=== PATIENT | female | born 1960 | race Caucasian/White ===

== ENCOUNTER 2021-05-01 09:29 | Inpatient (IN) ==
--- NOTE | 2021-05-01 09:39 | DR.SOBA ---
HPI Time Seen Time Seen by Provider: 05/01/21 09:38 HPI Comment HPI Comment: PATIENT IS 60YR OLD FEMALE IN ER WITH INCREASING SOB, COUGH AND CONGESTION TIMES ONE WEEK. PATIENT IS HAVING DYSURIA AND RIGHT GROIN PAIN. ADMITTED TO HOSPITAL AND TREATED FOR SEPSIS 3 WEEKS AGO. SHE TESTED POSITIVE FOR COVID 19 VIRUS ONE WEEK AGO. DENIES FEVER. O2 SAT DECREASE THIS AM, WAS 85%. Complaints Chief Complaint Doctors Comments: INCREASING SOB TIMES ONE WEEK. COVID-19 Coronavirus risk:travel/contact w/high risk person: No Has patient experienced Coronavirus symptoms: Yes Coronavirus symptoms experienced: Coughing and Shortness of Breath Reviewed Nurses Notes Reviewed: Yes Source History Provided: Patient Mode of Arrival Mode of Arrival: Ambulatory Duration Duration: Days Context Onset:: At Rest PE Risk Factors:: None History of:: Asthma Modifying Factors Worsens:: Exertion Improves:: Rest Associated Signs and Symptoms Associated Signs and Symptoms: Cough If Chest Pain Quality: Pleuritic Location: Substernal If Cough Cough: Clear Other History Other History: ASTHMA, CAD, BM HTN PMH PMH Past Medical History: Asthma, Coronary Artery Disease, Diabetes, GERD, Hypertension and Renal Disease Past Surgical History: Yes Surgical History: Appendectomy, Cholecystectomy, SENIOR ADMINISTRATOR SUPPORT Surgery and Hysterectomy Family History Family Medical History: Diabetes Mellitus, Cancer, NH, Coronary Artery Disease and Heart Failure Social History Do you use any recreational Drugs:: No ROS Review of Systems Constitutional: See HPI, Weakness and Fatigue; negative Fever Eyes: No Symptoms Reported and See HPI ENTM: See HPI, Nose Discharge and Nose Congestion Respiratoy: See HPI, Moist Cough and Short of Breath; negative Wheezing Cardiovascular: No Symptoms Reported and See HPI; negative Chest Pain Gastrointestinal/Abdominal: No Symptoms Reported and See HPI; negative Abdominal Pain, Diarrhea and Vomiting Genitourinary: See HPI and Dysuria Neurological: See HPI and Weakness; negative Headache and Dizziness Musculoskeletal: See HPI and Back Pain; negative Muscle Pain Integumentary: No Symptoms Reported and See HPI; negative Rash and Juandice Hematologic/Lymphatic: See HPI and Easy Bruising Endocrine: No Symptoms Reported and See HPI; negative Increased Thirst and Increased Urine Psychiatric: No Symptoms Reported and See HPI All Other Systems: Reviewed and Negative PE Vital Signs Vitals: Temperature 97.9 F Pulse Rate 73 Respiratory Rate 20 Blood Pressure [Left Arm] 128/83 Blood Pressure 201/84 O2 Sat by Pulse Oximetry 98 General Limitations: No Limitations General Appearance: Alert and In No Apparent Distress Head Head Exam: Normal Inspection and Atraumatic Eyes Eye exam: Normal Appearance and PERRL ENT ENT Exam: Normal Exam; negative Normal Oropharynx, Normal External Ear Exam and Mucous Membranes Dry Neck Neck Exam: Normal Inspection and Trachea Midline; negative Tenderness Chest Chest Inspection: Normal Inspection, Symmetric Chest Wall Rise and Tenderness Respiratory Respiratory Exam: Normal Lung Sounds Bilat Respiratory Exam: Bilateral: Clear to Auscultation Cardiovascular Cardiovascular Exam: Regular Rate and Normal Rhythm Abdominal Exam Abdominal Exam: Normal Inspection, Normal Bowel Sounds and Soft; negative Tenderness Extremities Extremities Exam: Normal Inspection Back Back Exam: Normal Inspection; negative (R) CVA Tenderness and (L) CVA Tenderness Neurologic Neurological Exam: Alert and Oriented X3; negative Motor Sensory Deficit Psychiatric Psychiatric Exam: Normal Affect and Normal Mood Skin Skin Exam: Warm, Dry, Intact and Normal Color MDM Differential Diagnosis Differential Diagnosis: Bronchitis, Hyponatremia, Mycardial Infarction, Pneumonia, Pneumothorax, Respiratory Insufficiency, Sinusitis and URI Differential Diagnosis Comment:: covid 19 virus infection COURSE Treatment Treatment: SEE ORDERS. SOUMEDROL 125MG IV, MORPHIN 4MG IV, ZOFRAN 4MG IV AND ZOSYN 3.375GM IVPB GIVEN TO PATIENT IN ER. Consultation Consultation Comments: DISCUSSED PATIENT WITH DR. MARIANO. HE WILL ADMIT PATIENT. ROR Labs Reviewed Result Diagrams: 05/05/21 04:50 05/05/21 04:50 Laboratory: WBC 7.5 X10^3/uL (3.6-10.0) 05/01/21 10:05 RBC 3.88 X10^6/uL (3.5-5.4) 05/01/21 10:05 Hgb 10.9 g/dL (12.0-16.0) L 05/01/21 10:05 Hct 32.5 % (36.0-47.0) L 05/01/21 10:05 MCV 83.9 fL (80.0-100.0) 05/01/21 10:05 MCH 28.1 pg (27.0-34.0) 05/01/21 10:05 MCHC 33.5 g/dL (33.0-35.0) 05/01/21 10:05 RDW 14.7 % (11.6-16.5) 05/01/21 10:05 Plt Count 305 X10^3/uL (150.0-450.0) 05/01/21 10:05 MPV 8.5 fL (7.4-11.0) 05/01/21 10:05 Neut % (Auto) 71.3 % (42.0-75.0) 05/01/21 10:05 Lymph % (Auto) 14.7 % (21.0-51.0) L 05/01/21 10:05 Scott % (Auto) 9.4 % (0.0-13.0) 05/01/21 10:05 Eos % (Auto) 4.1 % (0.9-2.9) H 05/01/21 10:05 Baso % (Auto) 0.5 % (0.2-1.0) 05/01/21 10:05 Neut # (Auto) 5.3 x10^3/uL (2.2-4.8) H 05/01/21 10:05 Lymph # (Auto) 1.1 X10^3/uL (1.3-2.9) L 05/01/21 10:05 Scott # (Auto) 0.7 x10^3/uL (0.3-0.8) 05/01/21 10:05 Eos # (Auto) 0.3 x10^3/uL (0.0-0.2) H 05/01/21 10:05 Baso # (Auto) 0.0 X10^3/uL (0.0-0.1) 05/01/21 10:05 Absolute Nucleated RBC 0.1 /100WBC 05/01/21 10:05 PT 11.5 SECONDS (11.8-14.3) 05/01/21 10:05 INR Target Range - 05/01/21 10:05 INR 0.88 (0.8-1.3) 05/01/21 10:05 APTT 24.9 SECONDS (22.9-36.5) 05/01/21 10:05 PTT Comment - 05/01/21 10:05 D-Dimer 2.36 ug/ml (0.0-0.57) H* 05/01/21 10:05 Sodium 137 mmol/L (136-145) 05/01/21 10:05 Corrected Sodium 139 mmol/L (136-145) 05/01/21 10:05 Potassium 5.1 mmol/L (3.5-5.1) 05/01/21 10:05 Chloride 102 mmol/L (98-107) 05/01/21 10:05 Carbon Dioxide 27.6 mmol/L (21-32) 05/01/21 10:05 BUN 40 mg/dL (7-18) H 05/01/21 10:05 Creatinine 1.26 mg/dL (0.55-1.02) H 05/01/21 10:05 Est GFR (MDRD) Af Amer 55 (>60) L 05/01/21 10:05 Est GFR (MDRD) Non-Af 46 (>60) L 05/01/21 10:05 Glucose 170 mg/dL (65-99) H 05/01/21 10:05 Calcium 8.8 mg/dL (8.5-10.1) 05/01/21 10:05 Creatine Kinase 48 Units/L (26-192) 05/01/21 10:05 CK-MB (CK-2) 0.9 ng/mL (0-4.0) 05/01/21 10:05 CK/CKMB % Calc 1.9 % (<4) 05/01/21 10:05 Troponin I High Sens 17.6 ng/L (4.0-60.0) 05/01/21 10:05 B-Natriuretic Peptide 352 pg/mL (0-79) H 05/01/21 10:05 Specimen Type Clean catch urine 05/01/21 10:11 Urine Color Yellow (YELLOW) 05/01/21 10:11 Urine Appearance Clear (CLEAR) 05/01/21 10:11 Urine pH 7.0 (5.0 - 8.0) 05/01/21 10:11 Ur Specific [place] 1.010 (1.000-1.030) 05/01/21 10:11 Urine Protein 2+ (NEGATIVE) 05/01/21 10:11 Urine Glucose (UA) Negative (NEGATIVE) 05/01/21 10:11 Urine Ketones Negative (NEGATIVE) 05/01/21 10:11 Urine Occult Blood 1+ (NEGATIVE) 05/01/21 10:11 Urine Nitrite Negative (NEGATIVE) 05/01/21 10:11 Urine Bilirubin Negative (NEGATIVE) 05/01/21 10:11 Urine Urobilinogen Normal (NORMAL) 05/01/21 10:11 Ur Leukocyte Esterase Negative (NEGATIVE) 05/01/21 10:11 Urine RBC 0-2 /HPF (0-3) 05/01/21 10:11 Urine WBC None seen /HPF (0-5) 05/01/21 10:11 Ur Squamous Epith Cells Rare /HPF (NEGATIVE) 05/01/21 10:11 Urine Bacteria Negative /HPF (NEGATIVE) 05/01/21 10:11 Ur Culture Indicated? No/not indicated 05/01/21 10:11 SARS CoV-2 RNA Rapid ALTHEA Positive (NEGATIVE) A 05/01/21 13:51 XRAY XRAY Interpreted by: Radiologist (REPORT NOTED AND DISCUSSED WITH PATIENT.) and Self EKG Rate: 78 [place]: Normal Rhythm: NSR Block: None Hypertrophy: LAE ST: Nonsp Opioid Opioid Risk Tool Age (José Luis box if 16-45): No History of Preadolescent Sexual Abuse: No Total: 0 Total Score Risk Category: Low Risk Copyright: [facility] predicting aberrant behaviors Diagnosis Discharge Problem: Pulmonary embolism, Acute respiratory distress Pneumonia Qualifiers: Pneumonia type: due to unspecified organism Laterality: bilateral Lung location: lower lobe of lung Qualified Code(s): J18.9 - Pneumonia, unspecified organism Instructions Instructions: Hyperglycemia, [id number] Home Oxygen Use, Adult Prone Position Therapy COVID-19 How to Use a Nebulizer, Adult COVID-19: Quarantine vs. Isolation - [facility] (03/17/2020) Managing Your Hypertension Blood Glucose Monitoring, Adult COVID-19: What to Do if You Are Sick - [facility] (03/31/2020) Forms: Precautions for COVID19 [facility] Social Distancing
[2021-05-01 09:53] VITALS: BMI 49.4
[2021-05-01 10:14] LABS: BASOPHILS % (AUTO) 0.5 % (0.2-1.0); EOSINOPHILS # (AUTO) 0.3 x10^3/uL (0.0-0.2); EOSINOPHILS % (AUTO) 4.1 % (0.9-2.9); HEMATOCRIT 32.5 % (36.0-47.0); HEMOGLOBIN 10.9 g/dL (12.0-16.0); LYMPHOCYTES # (AUTO) 1.1 X10^3/uL (1.3-2.9); LYMPHOCYTES % (AUTO) 14.7 % (21.0-51.0); MEAN CORPUSCULAR HEMOGLOBIN 28.1 pg (27.0-34.0); MEAN CORPUSCULAR HGB CONC 33.5 g/dL (33.0-35.0); MEAN CORPUSCULAR VOLUME 83.9 fL (80.0-100.0); MEAN PLATELET VOLUME 8.5 fL (7.4-11.0); MONOCYTES # (AUTO) 0.7 x10^3/uL (0.3-0.8); MONOCYTES % (AUTO) 9.4 % (0.0-13.0); NEUTROPHILS # (AUTO) 5.3 x10^3/uL (2.2-4.8); NEUTROPHILS % (AUTO) 71.3 % (42.0-75.0); RED BLOOD COUNT 3.88 X10^6/uL (3.5-5.4); RED CELL DISTRIBUTION WIDTH 14.7 % (11.6-16.5); WHITE BLOOD COUNT 7.5 X10^3/uL (3.6-10.0)
[2021-05-01 10:21] LABS: BILIRUBIN,URINE NEGATIVE (NEGATIVE); BLOOD/HEMOGLOBIN,URINE 1+ (NEGATIVE); GLUCOSE, URINE NEGATIVE (NEGATIVE); KETONES,URINE NEGATIVE (NEGATIVE); LEUKOCYTE ESTERASE ,URINE NEGATIVE (NEGATIVE); NITRITES,URINE NEGATIVE (NEGATIVE); PROTEIN,URINE 2+ (NEGATIVE); UROBILINOGEN,URINE NORMAL (NORMAL)
[2021-05-01 10:24] LABS: CALCIUM 8.8 mg/dL (8.5-10.1); CARBON DIOXIDE 27.6 mmol/L (21-32); CREATININE 1.26 mg/dL (0.55-1.02)
[2021-05-01 10:30] LABS: APPEARANCE,URINE CLEAR (CLEAR); BACTERIA,URINE NEGATIVE /HPF (NEGATIVE); COLOR,URINE YELLOW (YELLOW); RBC,URINE 0-2 /HPF (0-3); SQUAMOUS EPITHELIAL CELL,UR RARE /HPF (NEGATIVE)
--- NOTE | 2021-05-01 10:33 | RAD ---
HISTORYCAD, HTN, DM, APPY, GB, HYST shortness of breath, states she was hypoxic this morning with sats 85% and circumoral cyanosis. Pt is not on home oxygen.STUDYCHEST, 1 VIEWCOMPARISONJanuary 2021FINDINGSThe trachea is midline. The cardiac silhouette is unremarkable. The lungs demonstrates interval development of some lower lobe infiltrate probably due to early changes of pneumonia. The bony thorax is unremarkable.IMPRESSIONNew bilateral lower lobe infiltrates suggesting pneumonia.Electronically signed by: DAKOTA KIRK (May 01, 2021 10:32:22)
[2021-05-01] MEDS ORDERED: SOLU-Medrol 125 MG VIAL IVP ONE (10:40)
[2021-05-01] MEDS ORDERED: SOLU-Medrol 125 MG VIAL ONE (10:51)
[2021-05-01 10:53] LABS: CKMB % 1.9 % (<4); CREATINE KINASE MB 0.9 ng/mL (0-4.0)
[2021-05-01] MEDS ORDERED: ZOFRAN INJ 4 MG VIAL IVP ONE (11:17)
[2021-05-01] MEDS ORDERED: MORPHINE SULFATE INJ 4 MG IVP ONE (11:17)
[2021-05-01] MEDS ORDERED: ZOSYN VIAL 3.375 GRAMS 3.375 G in NS 100 ML IV + SPIKE MINIBAG* 100 ML IV ONE (12:18)
--- NOTE | 2021-05-01 12:32 | CT ---
HISTORYcovid +, sobSTUDYCTA CHESTCOMPARISONCT chest 01/05/2021 and chest radiograph 05/01/2021TECHNIQUEMultiple CT axial images of the chest were obtained with IV contrast. Coronal and sagittal images were reconstructed. 3D reconstructions using axial MIPS imaging was performed and reviewed. Dose reduction techniques included Automated Exposure Control (AEC) and adjustment of mA and kV.Stenoses are measured using NASCET criteria.FINDINGSPulmonary arteries are identified to segmental branches. There are partially occlusive and completely occlusive pulmonary emboli in the basilar segments to the right lower lobe. No emboli noted in the upper right lung or the left lung. The overall amount of thrombus burden is small.Cardiomegaly is present. The pulmonary artery and aorta have a normal caliber. Mediastinal lymphadenopathy is probably reactive from the patient's lung disease.The thyroid has a normal size and configuration. No axillary mass or significant axillary lymphadenopathy is identified.Abnormal opacity is present in the left and right lung. The pattern is consistent with a bronchopneumonia. Although nonspecific, the appearance can be seen with COVID-19 pneumonia. Trace bilateral effusions are present.Surgical clips are present in the gallbladder fossa from a cholecystectomy.IMPRESSION1. Small pulmonary emboli right lower lobe2. No evidence for right heart strain3. Findings consistent with bronchopneumoniaElectronically signed by: Michael Torres (May 01, 2021 12:31:33)
[2021-05-01] MEDS ORDERED: NS 100 ML IV + SPIKE MINIBAG* 100 ML IV ONE (12:47)
[2021-05-01] MEDS ORDERED: MORPHINE SULFATE INJ 4 MG ONE (12:47)
[2021-05-01] MEDS ORDERED: ZOFRAN INJ 4 MG VIAL ONE (12:47)
[2021-05-01] MEDS ORDERED: ZOSYN VIAL 3.375 GRAMS IV ONE (12:47)
[2021-05-01] MEDS ORDERED: HEPARIN SODIUM INJ 5000 UNITS IVP ONE (15:59)
[2021-05-01] MEDS ORDERED: HEPARIN SODIUM INJ 5000 UNITS ONE (16:01)
[2021-05-01] MEDS ORDERED: HEPARIN SODIUM IN D5W 25,000 UNITS/500 ML BAG ONE (16:01)
[2021-05-01] MEDS: HEPARIN SODIUM IN D5W 25,000 UNITS/500 ML BAG IV PRN (16:30)
[2021-05-01] MEDS ORDERED: REMDESIVIR 200 MG in NS 250 ML IV 250 ML IV ONE (17:37)
[2021-05-01] MEDS ORDERED: VENTOLIN or PROAIR HFA IN SCH (17:37)
[2021-05-01] MEDS ORDERED: VITAMIN D (1.25MG) PO SCH (17:37)
[2021-05-01] MEDS ORDERED: FLEXERIL TAB 10 MG PO PRN (17:37)
[2021-05-01] MEDS ORDERED: LACTULOSE PO PRN (17:37)
[2021-05-01] MEDS ORDERED: PROVENTIL NEB TX 0.083% 2.5MG/ 3ML IN SCH (17:37)
[2021-05-01] MEDS: ACTOS PO SCH (18:39)
[2021-05-01] MEDS: SYNTHROID 112 mcg TAB PO SCH (18:39)
[2021-05-01] MEDS: CRESTOR TAB 10 MG PO SCH (18:40)
[2021-05-01] MEDS: NS 1,000 ML IV 1,000 ML IV SCH (18:56)
[2021-05-01] MEDS ORDERED: PULMICORT NEB TX 0.5 MG NEB ONE (19:33)
[2021-05-01] MEDS ORDERED: BROVANA ONE (19:33)
[2021-05-01] MEDS ORDERED: LOPRESSOR TAB 50 MG PO ONE (20:50)
[2021-05-01] MEDS ORDERED: PEPCID TAB 20 MG PO SCH (21:00)
[2021-05-01] MEDS ORDERED: PEPCID TAB 40 MG PO SCH (21:00)
[2021-05-01] MEDS ORDERED: LACTULOSE PO SCH (21:00)
[2021-05-01] MEDS: SNACK - Diabetic Appropriate PO SCH (21:07)
[2021-05-01] MEDS: ASCORBIC ACID INJ MULTI-DOSE VIAL 1,500 MG in NS 100 ML IV 100 ML IV SCH (21:08)
[2021-05-01] MEDS: LYRICA CAP 75 mg PO SCH (21:08)
[2021-05-01] MEDS: TOPAMAX TAB 100 MG PO SCH (21:09)
[2021-05-01] MEDS: REQUIP PO SCH (21:09)
[2021-05-01] MEDS: VIBRAMYCIN PO SCH (21:10)
[2021-05-01] MEDS: DIABETA PO SCH (21:10)
[2021-05-01] MEDS: ZINC SULFATE PO SCH (21:10)
[2021-05-01] MEDS: ZOSYN VIAL 3.375 GRAMS 3.375 G in NS 100 ML IV + SPIKE MINIBAG* 100 ML IV SCH (21:11)
[2021-05-01] MEDS: SOLU-Medrol 40 MG VIAL IVP SCH (21:11)
[2021-05-01] MEDS: BROVANA IN SCH (21:12)
[2021-05-01] MEDS: PULMICORT NEB TX 0.5 MG NEB SCH (21:12)
[2021-05-01] MEDS: LEVSIN/MAALOX/LIDOC VISC PO PRN (21:12)
[2021-05-01] MEDS: MORPHINE SULFATE INJ 2 MG INJ IVP PRN (21:13)
[2021-05-01] MEDS: ZOFRAN TAB 4 MG PO PRN (21:14)
[2021-05-01] MEDS: NovoLIN R (or HumuLIN R) SUBCUT PRN (21:14)
[2021-05-01 21:32] LABS: CKMB % 1.3 % (<4); CREATINE KINASE MB 0.6 ng/mL (0-4.0)
[2021-05-01] MEDS ORDERED: NORMODYNE INJ 20 MG VIAL IV PRN (23:36)
[2021-05-01] MEDS: IPRATROPIUM BROMIDE 42 MCG/SPRAY ENOSTRIL SCH (23:41)
[2021-05-01] MEDS: TYLENOL 325 MG TAB PO PRN (23:51)
[2021-05-02] MEDS: NovoLIN R (or HumuLIN R) SUBCUT PRN ×2 (00:31→06:13)
[2021-05-02] MEDS: ASCORBIC ACID INJ MULTI-DOSE VIAL 1,500 MG in NS 100 ML IV 100 ML IV SCH (02:35)
[2021-05-02] MEDS: MORPHINE SULFATE INJ 2 MG INJ IVP PRN ×2 (05:29→09:25)
[2021-05-02 06:03] LABS: ABG BASE EXCESS -1.6 mmol/L (-2.0-2.0); ABG HCO3 22.9 mmol/L (22-26)
[2021-05-02 06:04] LABS: ABG ALLEN TEST POS
[2021-05-02 06:10] LABS: BASOPHILS % (AUTO) 0.2 % (0.2-1.0); HEMATOCRIT 31.2 % (36.0-47.0); HEMOGLOBIN 10.4 g/dL (12.0-16.0); LYMPHOCYTES # (AUTO) 0.8 X10^3/uL (1.3-2.9); LYMPHOCYTES % (AUTO) 11.8 % (21.0-51.0); MEAN CORPUSCULAR HGB CONC 33.4 g/dL (33.0-35.0); MEAN CORPUSCULAR VOLUME 83.9 fL (80.0-100.0); MEAN PLATELET VOLUME 9.2 fL (7.4-11.0); MONOCYTES # (AUTO) 0.4 x10^3/uL (0.3-0.8); MONOCYTES % (AUTO) 5.9 % (0.0-13.0); NEUTROPHILS # (AUTO) 5.7 x10^3/uL (2.2-4.8); NEUTROPHILS % (AUTO) 82.1 % (42.0-75.0); RED BLOOD COUNT 3.72 X10^6/uL (3.5-5.4); WHITE BLOOD COUNT 6.9 X10^3/uL (3.6-10.0)
[2021-05-02] MEDS: DIABETA PO SCH ×3 (06:11→21:04)
[2021-05-02] MEDS: SOLU-Medrol 40 MG VIAL IVP SCH ×3 (06:11→22:04)
[2021-05-02] MEDS: IPRATROPIUM BROMIDE 42 MCG/SPRAY ENOSTRIL SCH (06:11)
[2021-05-02] MEDS: ZOSYN VIAL 3.375 GRAMS 3.375 G in NS 100 ML IV + SPIKE MINIBAG* 100 ML IV SCH (06:12)
--- NOTE | 2021-05-02 06:19 | RAD ---
HISTORYSOBSTUDYCHEST, 1 [id number]/31/2022.TECHNIQUEAP view of the chestFINDINGSCardiac and mediastinal contours are within normal limits. Similar appearance of mild mid to lower lung interstitial opacity. No definite pleural effusion or pneumothorax.IMPRESSIONNo significant change. Similar appearance of mild mid to lower lung interstitial opacities that can be seen with atypical pneumonia.Electronically signed by: Jn Zuniga (May 02, 2021 06:18:15)
[2021-05-02 06:21] LABS: CALCIUM 8.4 mg/dL (8.5-10.1); CARBON DIOXIDE 23.4 mmol/L (21-32); COR CA(FOR HYPOALB) 9.2 mg/dL (8.5-10.1); CREATININE 1.74 mg/dL (0.55-1.02); TOTAL PROTEIN 6.9 g/dL (6.4-8.2)
[2021-05-02] MEDS ORDERED: GLUCOPHAGE PO SCH (07:00)
[2021-05-02] MEDS ORDERED: TRICOR TAB 160 MG PO SCH (09:00)
[2021-05-02] MEDS ORDERED: PHARMACY CONSULT - IVERMECTIN XX SCH (09:00)
[2021-05-02] MEDS ORDERED: VITAMIN D (1.25MG) PO SCH (09:00)
[2021-05-02] MEDS ORDERED: LEVAQUIN IV SCH (09:00)
[2021-05-02] MEDS: REMDESIVIR 100 MG in NS 250 ML IV 250 ML IV SCH (09:16)
[2021-05-02] MEDS: ZESTRIL TAB 10 MG PO SCH (09:18)
[2021-05-02] MEDS: ZINC SULFATE PO SCH ×2 (09:18→21:04)
[2021-05-02] MEDS: ZyrTEC TAB 10 MG PO SCH (09:18)
[2021-05-02] MEDS: VIBRAMYCIN PO SCH ×2 (09:19→21:03)
[2021-05-02] MEDS: REQUIP PO SCH ×2 (09:20→21:02)
[2021-05-02] MEDS: TOPROL XL PO SCH (09:20)
[2021-05-02] MEDS: TOPAMAX TAB 100 MG PO SCH ×2 (09:20→21:03)
[2021-05-02] MEDS: SINGULAIR TAB 10 MG PO SCH (09:20)
[2021-05-02] MEDS: PEPCID TAB 20 MG PO SCH (09:21)
[2021-05-02] MEDS: BROVANA IN SCH ×2 (09:21→20:12)
[2021-05-02] MEDS: PROTONIX TAB 40 MG PO SCH (09:21)
[2021-05-02] MEDS: DUONEB 0.5 MG/3 MG (3 mL) NEB SCH ×3 (09:21→20:12)
[2021-05-02] MEDS: PULMICORT NEB TX 0.5 MG NEB SCH ×2 (09:21→20:12)
[2021-05-02] MEDS: MICRO K EXTEN CAP 10 MEQ PO SCH (09:22)
[2021-05-02] MEDS: LYRICA CAP 75 mg PO SCH ×2 (09:22→21:02)
[2021-05-02] MEDS: CYMBALTA PO SCH (09:22)
[2021-05-02] MEDS: ALDACTONE TAB 25 MG PO SCH (09:23)
[2021-05-02] MEDS: ZOFRAN TAB 4 MG PO PRN (09:24)
[2021-05-02] MEDS: VITAMIN C PO SCH ×3 (09:29→21:04)
[2021-05-02] MEDS ORDERED: ULTRAM PO PRN (09:44)
--- NOTE | 2021-05-02 10:04 | DR.H&P ---
H&P - History & Physical for Day of: H&P Date: 05/01/21 - Chief Complaint Chief Complaint: SOB, COUGH, FATIGUE, GENERALIZED WEAKNESS - History of Present Illness History of Present Illness: IS A 60 YEAR OLD PATIENT OF [facility]. SHE PRESENTED TO THE ER WITH COMPLAINTS OF SHORTNESS OF BREATH, NON-PRODUCTIVE COUGH, FATIGUE, AND GENERALIZED WEAKNESS X 2 WEEKS. SHE REPORTS TESTING POSITIVE FOR COVID-19 ABOUT A WEEK AGO. SHE HAS BEEN TREATED BY HER PCP WITH NEBULIZER TREATMENTS AND ANTIBIOTICS FOR THE PAST WEEK. SHE DENIES IMPROVEMENT IN SYMPTOMS DESPITE COMPLIANCE WITH MEDICATIONS. HIS PMH INCLUDES: HYPERLIPIDEMIA, HTN, PE, SLEEP APNEA, FIBROMYALGIA, DM II, HYPOTHYROIDISM, APPENDECTOMY, CHOLECYSTECTOMY, HYSTERECTOMY. ON ARRIVAL TO THE ER, HER VITALS WERE: 97.9-85-26-99%RA-239/107. LABS WERE OBTAINED. ABNORMAL LAB VALUES INCLUDE THE FOLLOWING: HGB 10.9, HCT 32.5, D-DIMER 2.36, BUN 40, CREATININE 1.23, GLUCOSE 170, BNP 352. CARDIAC ENZYMES WERE WITHIN NORMAL LIMITS. ABG OBTAINED AND REVEALED: PH 7.400, PC02 37, P02 115, HC03 22.9, 02 SAT 99, A-A GRADIENT 38, FI02 28.0. URINALYSIS WAS UNREMARKABLE. COVID-19 POSITIVE. A CHEST XRAY WAS OBTAINED AND REVEALED: New bilateral lower lobe infiltrates suggesting pneumonia. EKG REVEALED: SINUS RHYTHM WITH HR 78. A CHEST CTA WAS OBTAINED AND REVEALED: 1. Small pulmonary emboli right lower lobe 2. No evidence for right heart strain 3. Findings consistent with bronchopneumonia. IN THE ER, SHE WAS GIVEN SOLU-MEDROL 125MG IV X 1, ZOSYN 3.375G IV X 1, MORPHINE 4MG IV X 1, ZOFRAN 4MG IV X 1, REMDESIVIR 200MG IV X 1, HUMULIN R 10 UNITS SC X 1, AND SHE WAS STARTED ON A HEPARIN DRIP. SHE WAS ADMITTED TO THE HOSPITAL FOR FURTHER EVALUATION AND TREATMENT OF PNEUMONIA DUE TO COVID-19, HYPOXIA, AND PULMONARY EMBOLISM. SHE WAS STARTED ON NORMAL SALINE AT 20 ML/HR, REMDESIVIR 100MG IV DAILY, HEPARIN DRIP, LEVAQUIN 500MG IV DAILY, SOLU-MEDROL 80MG IV Q8H, DUONEBS TID, PULMICORT NEBS BID, BROVANA BID, VITAMIN C 1G PO Q6H, DOXYCYCLINE 100MG PO BID, IVERMECTIN DAILY, VITAMIN A DAILY, AND ZINC 220MG PO BID, AND HER HOME MEDICATIONS WERE RESUMED. DUE TO ELEVATED BLOOD GLUCOSE LEVELS THROUGHOUT THE NIGHT, WE WILL DECREASE SOLU-MEDROL TO 40MG IV Q8H AND START AN INSULIN IV DRIP. OTHERWISE, WE PLAN TO FOLLOW UP WITH AM LABS AND CHEST XRAY AND CONTINUE TO MONITOR. TIME SPENT ON CLINICAL ASSESSMENT, REVIEWING LABS AND IMAGING, DECISION MAKING, AND DOCUMENTATION WAS GREATER THAN 75 MINUTES. - Past Medical History Past Medical History: Coronary Artery Disease, Hypertension, Diabetes, Renal Disease, Asthma, GERD - Past Surgical History Surgical History: Appendectomy, Cholecystectomy, LANGUAGE THERAPIST Surgery, Hysterectomy - Family History Family Medical History: Diabetes Mellitus, Hypertension - Social History Does patient currently use any type of tobacco product: No Have you used tobacco products in the last 12 months: No Type of Tobacco Use: None Does any household member use tobacco: No Alcohol Use: None Drug Use: Prescription Drugs - Medications Home Medications: propoxyphene [From Darvon] Allergy (Verified 05/01/21 09:29) warfarin [From Coumadin] Allergy (Verified 05/01/21 09:29) CONTINUE taking the following medications albuterol sulfate 2.5 mg INHALATION Q6H 05/01/21 [History] albuterol sulfate [ProAir HFA] 2 puff INHALATION QID 05/01/21 [History] aspirin 325 mg PO DAILY 05/01/21 [History] lbydfigxfy-vfohlmalqddmf-ugoj 1 tab PO Q6H PRN 05/01/21 [History] cetirizine 10 mg PO DAILY 05/01/21 [History] cyclobenzaprine 5 mg PO TID PRN 05/01/21 [History] duloxetine 30 mg PO DAILY 05/01/21 [History] ergocalciferol (vitamin D2) [Vitamin D2] 1,250 mcg PO WEEKLY 05/01/21 [History] famotidine 20 mg PO BID 05/01/21 [History] furosemide 40 mg PO QAM PRN 05/01/21 [History] glyburide 5 mg PO TID 05/01/21 [History] hydrocodone-acetaminophen [[place]ow] 1 tab PO Q8H PRN 05/01/21 [History] ipratropium bromide 2 spray INTRANASAL TID 05/01/21 [History] ketorolac 10 mg PO TID 05/01/21 [History] lactulose [Constulose] 15 ml PO QHS PRN 05/01/21 [History] levothyroxine 112 mcg PO ONCE 05/01/21 [History] lisinopril 10 mg PO DAILY 05/01/21 [History] metformin 850 mg PO BIDWMEAL 05/01/21 [History] metoprolol succinate 50 mg PO DAILY 05/01/21 [History] montelukast 10 mg PO DAILY 05/01/21 [History] ondansetron 4 mg PO Q8H PRN 05/01/21 [History] pantoprazole [Protonix] 40 mg PO QAM 05/01/21 [History] pioglitazone 30 mg PO ONCE 05/01/21 [History] potassium chloride 10 meq PO DAILY 05/01/21 [History] pregabalin [Lyrica] 225 mg PO BID 05/01/21 [History] ropinirole 1 mg PO BID 05/01/21 [History] rosuvastatin 20 mg PO ONCE 05/01/21 [History] spironolactone 50 mg PO QAM 05/01/21 [History] topiramate 200 mg PO BID 05/01/21 [History] tramadol 50 mg PO TID PRN 05/01/21 [History] - Review of Systems Constitutional: Weakness, Malaise Eyes: No Symptoms Reported ENT: No Symptoms Reported Respiratory: Cough, Shortness of Breath Cardiovascular: Chest Pain Gastrointestinal: No Symptoms Reported Genitourinary: No Symptoms Reported Musculoskeletal: No Symptoms Reported Skin: No Symptoms Reported Neurological: Weakness - Physical Exam Vital Signs: Temperature 98.2 F Pulse Rate [Right] 64 Pulse Rate 66 Respiratory Rate 12 Blood Pressure [Left Arm] 158/70 Blood Pressure 174/73 O2 Sat by Pulse Oximetry 98 Oriented: Normal Eyes: Normal Ear: Normal Nose: Normal Throat: Normal Respiratory: Diminished Throughout, Rhonchi Throughout Cardiovascular: Normal : Normal Auscultation: Bowel Sounds: Normal Palpation: Normal Tenderness: Normal Skin: Normal Musculoskeletal: Normal Psychiatric: Normal Mood Description: Calm Affect: Normal Speech Pattern: Clear - Assessment/Plan (1) Pneumonia due to COVID-19 virus Status: Acute Plan: ADMIT, SUPPLEMENTAL OXYGEN, HEPARIN DRIP, INSULIN DRIP, IV FLUIDS, IV ANTIBITOTICS, NEB TX, IV REMDESIVIR, IV STEROIDS, IMMUNE SUPPLEMENTS, RESUME H OME MEDS (2) Pulmonary embolism Qualifiers: Pulmonary embolism type: unspecified Chronicity: acute Acute cor pul monale presence: unspecified Qualified Code(s): I26.99 - Other pulmonary embolism without acute cor pulmonale Status: Acute (3) Hypoxia Status: Acute (4) Diabetes mellitus Qualifiers: Diabetes mellitus type: type 2 Diabetes mellitus retirement insulin use: with retirement use Diabetes mellitus complication status: with hyperglycemia Qualified Code(s): E11.65 - Type 2 diabetes mellitus with hyperglycemia; Z79.4 - group home (current) use of insulin Status: Chronic - Allergies Allergies/Adverse Reactions: Allergies Allergy/AdvReac Type Severity Reaction Status Date / Time propoxyphene [From Darvon] Allergy Verified 05/01/21 09:29 warfarin [From Coumadin] Allergy Verified 05/01/21 09:29
[2021-05-02] MEDS: MYXREDLIN 100 UNIT/100 ML BAG 100 UNIT/100 ML PLAST..BAG IV PRN (11:30)
[2021-05-02] MEDS: IVERMECTIN PO SCH (11:32)
[2021-05-02] MEDS: TYLENOL 325 MG TAB PO PRN (11:52)
[2021-05-02] MEDS: LEVSIN/MAALOX/LIDOC VISC PO PRN (12:45)
[2021-05-02] MEDS ORDERED: XYLOCAINE 1 % (PLAIN) ONE (13:12)
[2021-05-02] MEDS ORDERED: VERSED ONE (14:05)
[2021-05-02] MEDS: HEPARIN SODIUM IN D5W 25,000 UNITS/500 ML BAG IV PRN (14:30)
--- NOTE | 2021-05-02 14:44 | RAD ---
HISTORYCENTRAL LINE PLACEMENTSTUDYCHEST, 1 [id number]/01/2022.TECHNIQUEAP view of the chestFINDINGSRight IJ central line in good position. Cardiac and mediastinal contours are within normal limits. Similar mid to lower lung hazy and interstitial pulmonary opacities. No definite pleural effusion or pneumothorax. Soft tissue attenuation limits evaluation.IMPRESSIONRight IJ central line in good position. Otherwise similar to prior.Electronically signed by: Jn Zuniga (May 02, 2021 14:43:24)
[2021-05-02] MEDS: PHENERGAN INJ 25 MG IM PRN (14:46)
--- NOTE | 2021-05-02 14:51 | DR.UPDATE ---
H&P Update History and Physical Update: History and Physical reviewed and patient examined. Changes noted: NO Yes with the following:will place central line for access. H&P Reviewed: Yes Patient was examined?: Yes Procedures (ALL) - Central Line Placement PCM.CLCO: written consent Time out performed: Yes Patient placed pm monitor/pulse ox: Yes prep: mask, gown, gloves, other Centrial line prep: chlorhexidine scrub, sterile drapes applied Local anesthsia used: lidocane 1% (versed 2mg in divided doses for sedation.) Ultrasound used for placement: Yes (right ij id'd via u/s and cannulation visualized) Central line lumen ininserted: triple Post procedure: sutured in place, good blood return, all ports aspirated, flushed,capped, sterile dressing applied Post procedure xray: tip oc catheter in good position, no pneumothorax seen Patient tolerated procedure: Yes (awake and alert during and post procedure) Complications: none
[2021-05-02] MEDS ORDERED: HEPARIN SODIUM INJ 5000 UNITS ONE (15:57)
[2021-05-02] MEDS ORDERED: CRESTOR TAB 10 MG PO ONE (17:20)
[2021-05-02] MEDS ORDERED: SYNTHROID 112 mcg TAB ONE (17:20)
[2021-05-02] MEDS ORDERED: ACTOS PO ONE (17:20)
[2021-05-02] MEDS: ACTOS PO SCH (17:22)
[2021-05-02] MEDS: SYNTHROID 112 mcg TAB PO SCH (17:23)
[2021-05-02] MEDS: CRESTOR TAB 10 MG PO SCH (17:23)
[2021-05-02 20:29] LABS: CALCIUM 7.6 mg/dL (8.5-10.1); CREATININE 1.83 mg/dL (0.55-1.02)
[2021-05-02] MEDS: NS 1,000 ML IV 1,000 ML IV SCH (20:58)
[2021-05-02] MEDS: CHRONULAC PO SCH (21:55)
[2021-05-02] MEDS: SNACK - Diabetic Appropriate PO SCH (22:04)
[2021-05-03] MEDS: VITAMIN C PO SCH ×4 (03:04→20:03)
[2021-05-03 04:46] LABS: BASOPHILS # (AUTO) 0.1 X10^3/uL (0.0-0.1); BASOPHILS % (AUTO) 0.5 % (0.2-1.0); HEMATOCRIT 29.5 % (36.0-47.0); HEMOGLOBIN 9.8 g/dL (12.0-16.0); LYMPHOCYTES # (AUTO) 0.7 X10^3/uL (1.3-2.9); LYMPHOCYTES % (AUTO) 4.8 % (21.0-51.0); MEAN CORPUSCULAR HEMOGLOBIN 27.6 pg (27.0-34.0); MEAN CORPUSCULAR HGB CONC 33.1 g/dL (33.0-35.0); MEAN CORPUSCULAR VOLUME 83.3 fL (80.0-100.0); MEAN PLATELET VOLUME 9.2 fL (7.4-11.0); MONOCYTES # (AUTO) 0.6 x10^3/uL (0.3-0.8); MONOCYTES % (AUTO) 3.8 % (0.0-13.0); NEUTROPHILS # (AUTO) 13.7 x10^3/uL (2.2-4.8); NEUTROPHILS % (AUTO) 90.9 % (42.0-75.0); RED BLOOD COUNT 3.54 X10^6/uL (3.5-5.4); RED CELL DISTRIBUTION WIDTH 14.7 % (11.6-16.5)
[2021-05-03 04:53] LABS: ALBUMIN 2.9 g/dL (3.4-5.0); CALCIUM 7.4 mg/dL (8.5-10.1); CARBON DIOXIDE 26.8 mmol/L (21-32); COR CA(FOR HYPOALB) 8.3 mg/dL (8.5-10.1); CREATININE 1.69 mg/dL (0.55-1.02); TOTAL PROTEIN 6.4 g/dL (6.4-8.2)
[2021-05-03 05:19] LABS: BAND NEUTROPHILS % 3 % (0-10); PLATELET MORPHOLOGY COMMENT NORMAL (NORMAL); WHITE BLOOD COUNT 15.1 X10^3/uL (3.6-10.0)
[2021-05-03] MEDS: DIABETA PO SCH ×3 (05:25→21:03)
[2021-05-03] MEDS: SOLU-Medrol 40 MG VIAL IVP SCH ×3 (05:25→21:03)
[2021-05-03] MEDS: MYXREDLIN 100 UNIT/100 ML BAG 100 UNIT/100 ML PLAST..BAG IV PRN (05:26)
[2021-05-03] MEDS: DUONEB 0.5 MG/3 MG (3 mL) NEB SCH ×3 (05:32→20:51)
--- NOTE | 2021-05-03 06:05 | RAD ---
HISTORYSOBSTUDYCHEST, 1 VIEWCOMPARISONOne day prior.TECHNIQUEAP view of the chestFINDINGSRight IJ central line in good position. Cardiac and mediastinal contours are within normal limits. Similar appearance of mild mid to lower lung interstitial opacities. No definite pleural effusion or pneumothorax. Soft tissue attenuation limits evaluation.IMPRESSIONNo significant change.Electronically signed by: Jn Zuniga (May 03, 2021 06:04:09)
[2021-05-03] MEDS: NORCO 7.5/325 MG TAB PO PRN ×2 (06:39→16:59)
[2021-05-03] MEDS: PHENERGAN INJ 25 MG IM PRN ×2 (08:33→16:52)
[2021-05-03] MEDS: CRESTOR TAB 10 MG PO SCH (09:18)
[2021-05-03] MEDS: ALDACTONE TAB 25 MG PO SCH (09:18)
[2021-05-03] MEDS: CYMBALTA PO SCH (09:18)
[2021-05-03] MEDS: LEVSIN/MAALOX/LIDOC VISC PO PRN (09:18)
[2021-05-03] MEDS: MICRO K EXTEN CAP 10 MEQ PO SCH (09:19)
[2021-05-03] MEDS: LYRICA CAP 75 mg PO SCH ×2 (09:19→20:00)
[2021-05-03] MEDS: LEVAQUIN PREMIX IV 250 MG 250 MG/50 ML BAG IV SCH (09:19)
[2021-05-03] MEDS: IVERMECTIN PO SCH (09:19)
[2021-05-03] MEDS: PEPCID TAB 20 MG PO SCH (09:19)
[2021-05-03] MEDS: PROTONIX TAB 40 MG PO SCH (09:19)
[2021-05-03] MEDS: REQUIP PO SCH ×2 (09:20→20:01)
[2021-05-03] MEDS: SINGULAIR TAB 10 MG PO SCH (09:20)
[2021-05-03] MEDS: REMDESIVIR 100 MG in NS 250 ML IV 250 ML IV SCH (09:20)
[2021-05-03] MEDS: TOPROL XL PO SCH (09:21)
[2021-05-03] MEDS: TOPAMAX TAB 100 MG PO SCH ×2 (09:21→20:02)
[2021-05-03] MEDS: ZESTRIL TAB 10 MG PO SCH (09:22)
[2021-05-03] MEDS: VITAMIN A PO SCH (09:22)
[2021-05-03] MEDS: VITAMIN D3 125 mcg (5,000 UNITS) PO SCH (09:22)
[2021-05-03] MEDS: VIBRAMYCIN PO SCH ×2 (09:22→20:02)
[2021-05-03] MEDS: ZyrTEC TAB 10 MG PO SCH (09:23)
[2021-05-03] MEDS: PULMICORT NEB TX 0.5 MG NEB SCH ×3 (09:23→20:51)
[2021-05-03] MEDS: ZINC SULFATE PO SCH ×2 (09:23→20:03)
[2021-05-03] MEDS: BROVANA IN SCH ×3 (09:23→20:51)
[2021-05-03 09:25] LABS: CKMB % 1.4 % (<4); CREATINE KINASE 73 Units/L (26-192); CREATINE KINASE MB < 1.0 ng/mL (0-4.0)
[2021-05-03] MEDS: SYNTHROID 112 mcg TAB PO SCH (09:25)
[2021-05-03] MEDS: ACTOS PO SCH (09:25)
--- NOTE | 2021-05-03 09:53 | VAS ---
HISTORYPeripheral edema, PESTUDYDuplex venous ultrasound of bilateral lower extremitiesCOMPARISONNoneTECHNIQUEMultip le osborne scale and color flow Doppler images of the deep venous system were obtained of the right and left lower extremity.FINDINGSThe deep venous system of the right and left lower extremities were evaluated from the level of the common femoral vein through the posterior tibial vein. Normal color flow and augmentation can be observed. In addition, normal compression is seen throughout the deep venous system.IMPRESSIONNegative for DVT.Electronically signed by: Beni Hinkle (May 03, 2021 09:51:48)
--- NOTE | 2021-05-03 10:06 | PCM.PROG ---
Progress Note - Progress Note for Day of Date of Exam: 05/03/21 - Subjective Subjective: WAS ADMITTED FOR TREATMENT OF PNEUMONIA DUE TO COVID-19, PULMONARY EMBOLISM, HYPOXIA, DM II WITH HYPERGLYCEMIA. TODAY, SHE IS ALERT AND ORIENTED, LYING IN BED ON MORNING ROUNDS. SHE CONTINUES WITH COMPLAINTS OF WEAKNESS AND SHORTNESS OF BREATH. SHE ALSO REPORTS BILATERAL CALF PAIN. SHE IS CURRENTLY USING OXYGEN VIA NASAL CANNULA AT 2 LPM. SATURATIONS HAVE REMAINED IN THE 90s. ON EXAMINATION, HEART IS REGULAR IN RATE AND RHYTHM. BILATERAL LUNGS NOTED WITH DIMINISHED LUNG SOUNDS THROUGHOUT. ABDOMEN IS ROUND, SOFT, AND NOTED WITH NORMAL BOWEL SOUNDS IN ALL QUADRANTS. HER VITALS THIS MORNING ARE: 98.1-72-22-99%-156/74. LABS WERE OBTAINED. ABNORMAL LAB VALUES INCLUDE THE FOLLOWING: WBC 15.1, HGB 9.8, HCT 29.5, BUN 41, CREATININE 1.69, GLUCOSE 275, CALCIUM 7.4, AST 10, CRP 10.20, BNP 211, ALBUMIN 2.9. CHEST XRAY REVELAED: Right IJ central line in good position. Cardiac and mediastinal contours are within normal limits. Similar appearance of mild mid to lower lung interstitial opacities. No definite pleural effusion or pneumothorax. Soft tissue attenuation limits evaluation. SHE IS CURRENTLY RECEIVING NORMAL SALINE AT 20 ML/HR, REMDESIVIR 100MG IV DAILY, HEPARIN DRIP, INSULIN DRIP, LEVAQUIN 500MG IV DAILY, SOLU-MEDROL 40MG IV Q8H, DUONEBS TID, PULMICORT NEBS BID, BROVANA BID, VITAMIN C 1G PO Q6H, DOXYCYCLINE 100MG PO BID, IVERMECTIN DAILY, VITAMIN A DAILY, AND ZINC 220MG PO BID, AND HER HOME MEDICATIONS WERE RESUMED. GLUCOSE LEVELS HAVE BEEN IN THE 200s. WE WILL CONTINUE WITH CURRENT PLAN OF CARE TODAY AND OBTAIN BLE VENOUS DOPPLERS TO RULE OUT DVT. OTHERWISE, WE PLAN TO FOLLOW UP WITH AM LABS AND CHEST XRAY AND CONTINUE TO MONITOR. TIME SPENT ON CLINICAL ASSESSMENT, REVIEWING LABS AND IMAGING, DECISION MAKING, AND DOCUMENTATION GREATER THAN 45 MINUTES. - Past Medical Family Social History Past Med/Fam/Surg Hx: No changes since H&P Allergies: Allergies propoxyphene [From Darvon] Allergy (Verified 05/01/21 09:29) warfarin [From Coumadin] Allergy (Verified 05/01/21 09:29) - Review of Systems ROS: No change since H&P - Vital Signs and I&O's Vital Signs: Temperature 97.9 F Pulse Rate [Right] 64 Pulse Rate 72 Respiratory Rate 22 Blood Pressure [Left Arm] 158/70 Blood Pressure 156/74 O2 Sat by Pulse Oximetry 99 Intake and Output: Intake & Output 04/30/21 05/01/21 05/02/21 05/03/21 11:59 11:59 11:59 11:59 Intake Total 2298 / 2298 3136 / 3136 Output Total 1999 1000 / 1000 Balance 298 / 298 2136 / 2136 - Physical Exam Oriented: Normal Eyes: Normal Ear: Normal Nose: Normal Throat: Normal Respiratory: Generalized, Diminished Cardiovascular: Normal : Normal Auscultation: Bowel Sounds: Normal Palpation: Normal Tenderness: Normal Skin: Normal Musculoskeletal: Right, Left, Leg, Tender Psychiatric: Normal Mood Description: Calm Affect: Normal Speech Pattern: Clear, Appropriate - Laboratory and Diagnostics Result Diagrams: 05/03/21 04:07 05/03/21 04:07 Labs: Laboratory WBC 15.1 X10^3/uL (3.6-10.0) H D 05/03/21 04:07 RBC 3.54 X10^6/uL (3.5-5.4) 05/03/21 04:07 Hgb 9.8 g/dL (12.0-16.0) L 05/03/21 04:07 Hct 29.5 % (36.0-47.0) L 05/03/21 04:07 MCV 83.3 fL (80.0-100.0) 05/03/21 04:07 MCH 27.6 pg (27.0-34.0) 05/03/21 04:07 MCHC 33.1 g/dL (33.0-35.0) 05/03/21 04:07 RDW 14.7 % (11.6-16.5) 05/03/21 04:07 Plt Count 316 X10^3/uL (150.0-450.0) 05/03/21 04:07 Plt Count Comment Adequate (ADEQUATE) 05/03/21 04:07 MPV 9.2 fL (7.4-11.0) 05/03/21 04:07 Neut % (Auto) 90.9 % (42.0-75.0) H 05/03/21 04:07 Lymph % (Auto) 4.8 % (21.0-51.0) L 05/03/21 04:07 [place] % (Auto) 3.8 % (0.0-13.0) 05/03/21 04:07 Eos % (Auto) 0.0 % (0.9-2.9) L 05/03/21 04:07 Baso % (Auto) 0.5 % (0.2-1.0) 05/03/21 04:07 Neut # (Auto) 13.7 x10^3/uL (2.2-4.8) H 05/03/21 04:07 Lymph # (Auto) 0.7 X10^3/uL (1.3-2.9) L 05/03/21 04:07 [place] # (Auto) 0.6 x10^3/uL (0.3-0.8) 05/03/21 04:07 Eos # (Auto) 0.0 x10^3/uL (0.0-0.2) 05/03/21 04:07 Baso # (Auto) 0.1 X10^3/uL (0.0-0.1) 05/03/21 04:07 Absolute Nucleated RBC 0.0 /100WBC 05/03/21 04:07 Total Counted 100 05/03/21 04:07 Neutrophils % (Manual) 92 % (39-76) H 05/03/21 04:07 Band Neutrophils % 3 % (0-10) 05/03/21 04:07 Lymphocytes % (Manual) 3 % (13-43) L 05/03/21 04:07 Monocytes % (Manual) 2 % (4-9) L 05/03/21 04:07 Plt Morphology Comment Normal (NORMAL) 05/03/21 04:07 RBC Morphology Normal (NORMAL) 05/03/21 04:07 PT 11.5 SECONDS (11.8-14.3) 05/01/21 10:05 INR Target Range - 05/01/21 10:05 INR 0.88 (0.8-1.3) 05/01/21 10:05 APTT 91.2 SECONDS (22.9-36.5) H 05/03/21 04:07 PTT Comment - 05/03/21 04:07 D-Dimer 2.04 ug/ml (0.0-0.57) H* 05/02/21 05:45 Sample Site Rr 05/02/21 05:00 ABG pH 7.400 (7.35-7.45) 05/02/21 05:00 ABG pCO2 37.0 mmHg (35.0-45.0) 05/02/21 05:00 ABG pO2 115.0 mmHg (80.0-100.0) H 05/02/21 05:00 ABG HCO3 22.9 mmol/L (22-26) 05/02/21 05:00 ABG O2 Saturation 99.0 % (90-100) 05/02/21 05:00 ABG Base Excess -1.6 mmol/L (-2.0-2.0) 05/02/21 05:00 [place]ante Test Pos 05/02/21 05:00 A-a Gradient 38.0 mmHg 05/02/21 05:00 FiO2 28.0 05/02/21 05:00 Blood Gas Comments Jeri well sw 05/02/21 05:00 Sodium 140 mmol/L (136-145) 05/03/21 04:07 Corrected Sodium 144 mmol/L (136-145) 05/03/21 04:07 Potassium 4.3 mmol/L (3.5-5.1) 05/03/21 04:07 Chloride 105 mmol/L (98-107) 05/03/21 04:07 Carbon Dioxide 26.8 mmol/L (21-32) 05/03/21 04:07 BUN 41 mg/dL (7-18) H 05/03/21 04:07 Creatinine 1.69 mg/dL (0.55-1.02) H 05/03/21 04:07 Est GFR (MDRD) Af Amer 39 (>60) L 05/03/21 04:07 Est GFR (MDRD) Non-Af 33 (>60) L 05/03/21 04:07 Glucose 275 mg/dL (65-99) H 05/03/21 04:07 POC Glucose (mg/dL) 298 mg/dL (65-99) H 05/03/21 10:02 Calcium 7.4 mg/dL (8.5-10.1) L 05/03/21 04:07 Corrected Calcium 8.3 mg/dL (8.5-10.1) L 05/03/21 04:07 Total Bilirubin 0.10 mg/dL (0.2-1.0) L 05/03/21 04:07 AST 10 Units/L (15-37) L 05/03/21 04:07 ALT 14 Units/L (12-78) 05/03/21 04:07 Alkaline Phosphatase 68 Units/L (46-116) 05/03/21 04:07 Creatine Kinase 73 Units/L (26-192) 05/03/21 08:55 CK-MB (CK-2) < 1.0 ng/mL (0-4.0) 05/03/21 08:55 CK/CKMB % Calc 1.4 % (<4) 05/03/21 08:55 Troponin I High Sens 17.7 ng/L (4.0-60.0) 05/03/21 08:55 C-Reactive Protein 10.20 mg/L (0-3.0) H 05/03/21 04:07 B-Natriuretic Peptide 211 pg/mL (0-79) H 05/03/21 04:07 Total Protein 6.4 g/dL (6.4-8.2) 05/03/21 04:07 Albumin 2.9 g/dL (3.4-5.0) L 05/03/21 04:07 Globulin 3.5 g/dL (2.5-4.5) 05/03/21 04:07 Albumin/Globulin Ratio 0.8 Ratio (1.1-2.1) L 05/03/21 04:07 Specimen Type Clean catch urine 05/01/21 10:11 Urine Color Yellow (YELLOW) 05/01/21 10:11 Urine Appearance Clear (CLEAR) 05/01/21 10:11 Urine pH 7.0 (5.0 - 8.0) 05/01/21 10:11 Ur Specific [place] 1.010 (1.000-1.030) 05/01/21 10:11 Urine Protein 2+ (NEGATIVE) 05/01/21 10:11 Urine Glucose (UA) Negative (NEGATIVE) 05/01/21 10:11 Urine Ketones Negative (NEGATIVE) 05/01/21 10:11 Urine Occult Blood 1+ (NEGATIVE) 05/01/21 10:11 Urine Nitrite Negative (NEGATIVE) 05/01/21 10:11 Urine Bilirubin Negative (NEGATIVE) 05/01/21 10:11 Urine Urobilinogen Normal (NORMAL) 05/01/21 10:11 Ur Leukocyte Esterase Negative (NEGATIVE) 05/01/21 10:11 Urine RBC 0-2 /HPF (0-3) 05/01/21 10:11 Urine WBC None seen /HPF (0-5) 05/01/21 10:11 Ur Squamous Epith Cells Rare /HPF (NEGATIVE) 05/01/21 10:11 Urine Bacteria Negative /HPF (NEGATIVE) 05/01/21 10:11 Ur Culture Indicated? No/not indicated 05/01/21 10:11 SARS CoV-2 RNA Rapid ALTHEA Positive (NEGATIVE) A 05/01/21 13:51 - Plan (1) Pneumonia due to COVID-19 virus Status: Acute Plan: SUPPLEMENTAL OXYGEN, HEPARIN DRIP, INSULIN DRIP, IV FLUIDS, IV ANTIBITOTICS, NEB TX, IV REMDESIVIR, IV STEROIDS, IMMUNE SUPPLEMENTS, RESUME HOME MEDS (2) Pulmonary embolism Status: Acute Qualifiers: Pulmonary embolism type: unspecified Chronicity: acute Acute cor pulmonale presence: unspecified Qualified Code(s): I26.99 - Other pulmonary embolism without acute cor pulmonale (3) Hypoxia Status: Acute (4) Diabetes mellitus Status: Chronic Qualifiers: Diabetes mellitus type: type 2 Diabetes mellitus emt intermediate insulin use: with group home use Diabetes mellitus complication status: with hyperglycemia Qualified Code(s): E11.65 - Type 2 diabetes mellitus with hyperglycemia; Z79.4 - termite control servicer (current) use of insulin
[2021-05-03] MEDS: HEPARIN SODIUM IN D5W 25,000 UNITS/500 ML BAG IV PRN (11:49)
[2021-05-03] MEDS ORDERED: HEPARIN SODIUM INJ 5000 UNITS IVP ONE (11:50)
[2021-05-03] MEDS: ZOFRAN TAB 4 MG PO PRN (12:08)
[2021-05-03] MEDS: NS 1,000 ML IV 1,000 ML IV SCH (17:27)
[2021-05-03] MEDS: SNACK - Diabetic Appropriate PO SCH (20:00)
[2021-05-03] MEDS: TYLENOL 325 MG TAB PO PRN (20:05)
[2021-05-03] MEDS: CHRONULAC PO SCH (21:03)
[2021-05-04] MEDS: NORCO 7.5/325 MG TAB PO PRN ×2 (00:41→13:26)
[2021-05-04] MEDS: PHENERGAN INJ 25 MG IM PRN ×3 (00:41→13:25)
[2021-05-04] MEDS: VITAMIN C PO SCH ×4 (02:16→20:33)
--- NOTE | 2021-05-04 05:21 | RAD ---
PROCEDURE: Chest X-ray 1 View .HISTORY: Dyspnea.TECHNIQUE: AP view .COMPARISON: 05/03/2021.TECHNICAL QUALITY: Satisfactory .FINDINGS:Normal size heart .Mediastinum and hilar regions show no masses or lymphadenopathy .Normal central vascularity .No pulmonary consolidation, masses, pleural fluid, or pneumothorax .No acute bony abnormality .IMPRESSION:No active cardiopulmonary disease .Electronically signed by: Levi Chiang (May 04, 2021 05:20:16)
[2021-05-04] MEDS: DIABETA PO SCH ×3 (05:25→21:03)
[2021-05-04] MEDS: SOLU-Medrol 40 MG VIAL IVP SCH ×3 (05:25→21:03)
[2021-05-04] MEDS: ZOFRAN TAB 4 MG PO PRN ×2 (05:26→11:59)
[2021-05-04] MEDS: TYLENOL 325 MG TAB PO PRN (05:26)
[2021-05-04] MEDS: DUONEB 0.5 MG/3 MG (3 mL) NEB SCH ×3 (05:35→21:00)
[2021-05-04 06:20] LABS: BASOPHILS % (AUTO) 0 % (0.2-1.0); HEMATOCRIT 29.2 % (36.0-47.0); HEMOGLOBIN 9.8 g/dL (12.0-16.0); LYMPHOCYTES # (AUTO) 1.2 X10^3/uL (1.3-2.9); LYMPHOCYTES % (AUTO) 7.5 % (21.0-51.0); MEAN CORPUSCULAR HEMOGLOBIN 28.2 pg (27.0-34.0); MEAN CORPUSCULAR HGB CONC 33.6 g/dL (33.0-35.0); MEAN PLATELET VOLUME 9.3 fL (7.4-11.0); MONOCYTES # (AUTO) 0.8 x10^3/uL (0.3-0.8); NEUTROPHILS # (AUTO) 13.8 x10^3/uL (2.2-4.8); NEUTROPHILS % (AUTO) 87.5 % (42.0-75.0); RED BLOOD COUNT 3.48 X10^6/uL (3.5-5.4); RED CELL DISTRIBUTION WIDTH 14.9 % (11.6-16.5); WHITE BLOOD COUNT 15.8 X10^3/uL (3.6-10.0)
[2021-05-04 06:33] LABS: ALBUMIN 2.9 g/dL (3.4-5.0); CALCIUM 7.7 mg/dL (8.5-10.1); CARBON DIOXIDE 23.6 mmol/L (21-32); COR CA(FOR HYPOALB) 8.6 mg/dL (8.5-10.1); CREATININE 1.62 mg/dL (0.55-1.02); TOTAL PROTEIN 6.4 g/dL (6.4-8.2)
[2021-05-04] MEDS: HEPARIN SODIUM IN D5W 25,000 UNITS/500 ML BAG IV PRN (06:38)
[2021-05-04] MEDS: LEVSIN/MAALOX/LIDOC VISC PO PRN ×3 (06:38→20:45)
[2021-05-04] MEDS: PULMICORT NEB TX 0.5 MG NEB SCH ×2 (08:40→21:00)
[2021-05-04] MEDS: BROVANA IN SCH ×2 (08:40→21:00)
[2021-05-04] MEDS: ACTOS PO SCH (09:19)
[2021-05-04] MEDS: IVERMECTIN PO SCH (09:20)
[2021-05-04] MEDS: ALDACTONE TAB 25 MG PO SCH (09:20)
[2021-05-04] MEDS: CYMBALTA PO SCH (09:20)
[2021-05-04] MEDS: LEVAQUIN PREMIX IV 250 MG 250 MG/50 ML BAG IV SCH (09:20)
[2021-05-04] MEDS: CRESTOR TAB 10 MG PO SCH (09:20)
[2021-05-04] MEDS: PROTONIX TAB 40 MG PO SCH (09:21)
[2021-05-04] MEDS: PEPCID TAB 20 MG PO SCH (09:21)
[2021-05-04] MEDS: VIBRAMYCIN PO SCH ×2 (09:21→20:33)
[2021-05-04] MEDS: LYRICA CAP 75 mg PO SCH ×2 (09:21→20:34)
[2021-05-04] MEDS: MICRO K EXTEN CAP 10 MEQ PO SCH (09:21)
[2021-05-04] MEDS: TOPAMAX TAB 100 MG PO SCH ×2 (09:22→20:33)
[2021-05-04] MEDS: REMDESIVIR 100 MG in NS 250 ML IV 250 ML IV SCH (09:22)
[2021-05-04] MEDS: REQUIP PO SCH ×2 (09:22→20:36)
[2021-05-04] MEDS: SYNTHROID 112 mcg TAB PO SCH (09:22)
[2021-05-04] MEDS: ZyrTEC TAB 10 MG PO SCH (09:22)
[2021-05-04] MEDS: VITAMIN A PO SCH (09:22)
[2021-05-04] MEDS: SINGULAIR TAB 10 MG PO SCH (09:22)
[2021-05-04] MEDS: TOPROL XL PO SCH (09:23)
[2021-05-04] MEDS: VITAMIN D3 125 mcg (5,000 UNITS) PO SCH (09:23)
[2021-05-04] MEDS: ZESTRIL TAB 10 MG PO SCH (09:23)
[2021-05-04] MEDS: ZINC SULFATE PO SCH ×2 (09:23→20:35)
[2021-05-04] MEDS: ELIQUIS PO SCH ×2 (09:27→20:34)
[2021-05-04] MEDS: LANTUS SC SCH (09:27)
--- NOTE | 2021-05-04 10:04 | PCM.PROG ---
Progress Note - Progress Note for Day of Date of Exam: 05/04/21 - Subjective Subjective: WAS ADMITTED FOR TREATMENT OF PNEUMONIA DUE TO COVID-19, PULMONARY EMBOLISM, HYPOXIA, DM II WITH HYPERGLYCEMIA. TODAY, SHE IS ALERT AND ORIENTED, LYING IN BED ON MORNING ROUNDS. SHE CONTINUES WITH COMPLAINTS OF WEAKNESS AND SHORTNESS OF BREATH. SHE ALSO REPORTS BILATERAL LEG PAIN, BUT DOES REPORT IMPROVEMENT SINCE YESTERDAY. SHE IS CURRENTLY USING OXYGEN VIA NASAL CANNULA AT 2 LPM. SATURATIONS HAVE REMAINED IN THE 90s. ON EXAMINATION, HEART IS REGULAR IN RATE AND RHYTHM. BILATERAL LUNGS NOTED WITH DIMINISHED LUNG SOUNDS THROUGHOUT. ABDOMEN IS ROUND, SOFT, AND NOTED WITH NORMAL BOWEL SOUNDS IN ALL QUADRANTS. HER VITALS THIS MORNING ARE: 98.1-79-21-100%-125/58. LABS WERE OBTAINED. ABNORMAL LAB VALUES INCLUDE THE FOLLOWING: WBC 15.8, RBC 3.48, HGB 9.8, HCT 29.2, BUN 45, CREATININE 1.62, GLUCOSE 263, CALCIUM 7.7, TOTAL BILI 0.10, AST 14, CRP 4.80, BNP 97.7, ALBUMIN 2.9. CHEST XRAY REVEALED: Normal size heart. Mediastinum and hilar regions show no masses or lymphadenopathy. Normal central vascularity. No pulmonary consolidation, masses, pleural fluid, or pneumothorax. No acute bony abnormality. BILATERAL LOWER EXTREMITY VENOUS DOPPLER OBTAINED YESTERDAY AND WAS NEGATIVE FOR DVT. SHE IS CURRENTLY RECEIVING NORMAL SALINE AT 20 ML/HR, REMDESIVIR 100MG IV DAILY, HEPARIN DRIP, INSULIN DRIP, LEVAQUIN 500MG IV DAILY, SOLU-MEDROL 40MG IV Q8H, DUONEBS TID, PULMICORT NEBS BID, BROVANA BID, VITAMIN C 1G PO Q6H, DOXYCYCLINE 100MG PO BID, IVERMECTIN DAILY, VITAMIN A DAILY, AND ZINC 220MG PO BID, AND HER HOME MEDICATIONS WERE RESUMED. GLUCOSE LEVELS HAVE BEEN IN THE 200s. TODAY, WE WILL DISCONTINUE THE INSULIN DRIP AND THE HEPARIN DRIP. WE WILL ADD LANTUS 15UNITS SC DAILY, ELIQUIS 10MG PO BID, AND HUMULIN R SLIDING SCALE PER PROTOCOL. OTHERWISE, WE PLAN TO FOLLOW UP WITH AM LABS AND CHEST XRAY AND CONTINUE TO MONITOR. TIME SPENT ON CLINICAL ASSESSMENT, REVIEWING LABS AND IMAGING, DECISION MAKING, AND DOCUMENTATION GREATER THAN 45 MINUTES. - Past Medical Family Social History Past Med/Fam/Surg Hx: No changes since H&P Allergies: Allergies propoxyphene [From Darvon] Allergy (Verified 05/01/21 09:29) warfarin [From Coumadin] Allergy (Verified 05/01/21 09:29) - Review of Systems ROS: No change since H&P - Vital Signs and I&O's Vital Signs: Temperature 98.1 F Pulse Rate [Right] 64 Pulse Rate 79 Respiratory Rate 21 Blood Pressure [Left Arm] 158/70 Blood Pressure 125/58 O2 Sat by Pulse Oximetry 100 Intake and Output: Intake & Output 05/01/21 05/02/21 05/03/21 05/04/21 11:59 11:59 11:59 11:59 Intake Total 2298 / 2298 3491 / 3491 3655 / 3655 Output Total 1999 / 1999 1000 / 1000 1000 / 1000 Balance 298 / 298 2491 / 2491 2655 / 2655 - Physical Exam Oriented: Normal Eyes: Normal Ear: Normal Nose: Normal Throat: Normal Respiratory: Generalized, Diminished Cardiovascular: Normal : Normal Auscultation: Bowel Sounds: Normal Palpation: Normal Tenderness: Normal Skin: Normal Musculoskeletal: Right, Left, Leg, Tender Psychiatric: Normal Mood Description: Calm Affect: Normal Speech Pattern: Clear, Appropriate - Laboratory and Diagnostics Result Diagrams: 05/04/21 06:02 05/04/21 06:02 Labs: Laboratory WBC 15.8 X10^3/uL (3.6-10.0) H 05/04/21 06:02 RBC 3.48 X10^6/uL (3.5-5.4) L 05/04/21 06:02 Hgb 9.8 g/dL (12.0-16.0) L 05/04/21 06:02 Hct 29.2 % (36.0-47.0) L 05/04/21 06:02 MCV 84.0 fL (80.0-100.0) 05/04/21 06:02 MCH 28.2 pg (27.0-34.0) 05/04/21 06:02 MCHC 33.6 g/dL (33.0-35.0) 05/04/21 06:02 RDW 14.9 % (11.6-16.5) 05/04/21 06:02 Plt Count 298 X10^3/uL (150.0-450.0) 05/04/21 06:02 Plt Count Comment Adequate (ADEQUATE) 05/03/21 04:07 MPV 9.3 fL (7.4-11.0) 05/04/21 06:02 Neut % (Auto) 87.5 % (42.0-75.0) H 05/04/21 06:02 Lymph % (Auto) 7.5 % (21.0-51.0) L 05/04/21 06:02 [place] % (Auto) 5.0 % (0.0-13.0) 05/04/21 06:02 Eos % (Auto) 0.0 % (0.9-2.9) L 05/04/21 06:02 Baso % (Auto) 0 % (0.2-1.0) L 05/04/21 06:02 Neut # (Auto) 13.8 x10^3/uL (2.2-4.8) H 05/04/21 06:02 Lymph # (Auto) 1.2 X10^3/uL (1.3-2.9) L 05/04/21 06:02 [place] # (Auto) 0.8 x10^3/uL (0.3-0.8) 05/04/21 06:02 Eos # (Auto) 0.0 x10^3/uL (0.0-0.2) 05/04/21 06:02 Baso # (Auto) 0.0 X10^3/uL (0.0-0.1) 05/04/21 06:02 Absolute Nucleated RBC 0.1 /100WBC 05/04/21 06:02 Total Counted 100 05/03/21 04:07 Neutrophils % (Manual) 92 % (39-76) H 05/03/21 04:07 Band Neutrophils % 3 % (0-10) 05/03/21 04:07 Lymphocytes % (Manual) 3 % (13-43) L 05/03/21 04:07 Monocytes % (Manual) 2 % (4-9) L 05/03/21 04:07 Plt Morphology Comment Normal (NORMAL) 05/03/21 04:07 RBC Morphology Normal (NORMAL) 05/03/21 04:07 PT 11.5 SECONDS (11.8-14.3) 05/01/21 10:05 INR Target Range - 05/01/21 10:05 INR 0.88 (0.8-1.3) 05/01/21 10:05 APTT 86.8 SECONDS (22.9-36.5) H 05/04/21 06:02 PTT Comment - 05/04/21 06:02 D-Dimer 2.04 ug/ml (0.0-0.57) H* 05/02/21 05:45 Sample Site Rr 05/02/21 05:00 ABG pH 7.400 (7.35-7.45) 05/02/21 05:00 ABG pCO2 37.0 mmHg (35.0-45.0) 05/02/21 05:00 ABG pO2 115.0 mmHg (80.0-100.0) H 05/02/21 05:00 ABG HCO3 22.9 mmol/L (22-26) 05/02/21 05:00 ABG O2 Saturation 99.0 % (90-100) 05/02/21 05:00 ABG Base Excess -1.6 mmol/L (-2.0-2.0) 05/02/21 05:00 [place] Test Pos 05/02/21 05:00 A-a Gradient 38.0 mmHg 05/02/21 05:00 FiO2 28.0 05/02/21 05:00 Blood Gas Comments Jeri well sw 05/02/21 05:00 Sodium 139 mmol/L (136-145) 05/04/21 06:02 Corrected Sodium 143 mmol/L (136-145) 05/04/21 06:02 Potassium 4.2 mmol/L (3.5-5.1) 05/04/21 06:02 Chloride 106 mmol/L (98-107) 05/04/21 06:02 Carbon Dioxide 23.6 mmol/L (21-32) 05/04/21 06:02 BUN 45 mg/dL (7-18) H 05/04/21 06:02 Creatinine 1.62 mg/dL (0.55-1.02) H 05/04/21 06:02 Est GFR (MDRD) Af Amer 41 (>60) L 05/04/21 06:02 Est GFR (MDRD) Non-Af 34 (>60) L 05/04/21 06:02 Glucose 263 mg/dL (65-99) H 05/04/21 06:02 POC Glucose (mg/dL) 250 mg/dL (65-99) H 05/04/21 09:04 Calcium 7.7 mg/dL (8.5-10.1) L 05/04/21 06:02 Corrected Calcium 8.6 mg/dL (8.5-10.1) 05/04/21 06:02 Total Bilirubin 0.10 mg/dL (0.2-1.0) L 05/04/21 06:02 AST 14 Units/L (15-37) L 05/04/21 06:02 ALT 16 Units/L (12-78) 05/04/21 06:02 Alkaline Phosphatase 64 Units/L (46-116) 05/04/21 06:02 Creatine Kinase 73 Units/L (26-192) 05/03/21 08:55 CK-MB (CK-2) < 1.0 ng/mL (0-4.0) 05/03/21 08:55 CK/CKMB % Calc 1.4 % (<4) 05/03/21 08:55 Troponin I High Sens 17.7 ng/L (4.0-60.0) 05/03/21 08:55 C-Reactive Protein 4.80 mg/L (0-3.0) H 05/04/21 06:02 B-Natriuretic Peptide 97.7 pg/mL (0-79) H 05/04/21 06:02 Total Protein 6.4 g/dL (6.4-8.2) 05/04/21 06:02 Albumin 2.9 g/dL (3.4-5.0) L 05/04/21 06:02 Globulin 3.5 g/dL (2.5-4.5) 05/04/21 06:02 Albumin/Globulin Ratio 0.8 Ratio (1.1-2.1) L 05/04/21 06:02 Specimen Type Clean catch urine 05/01/21 10:11 Urine Color Yellow (YELLOW) 05/01/21 10:11 Urine Appearance Clear (CLEAR) 05/01/21 10:11 Urine pH 7.0 (5.0 - 8.0) 05/01/21 10:11 Ur Specific [place] 1.010 (1.000-1.030) 05/01/21 10:11 Urine Protein 2+ (NEGATIVE) 05/01/21 10:11 Urine Glucose (UA) Negative (NEGATIVE) 05/01/21 10:11 Urine Ketones Negative (NEGATIVE) 05/01/21 10:11 Urine Occult Blood 1+ (NEGATIVE) 05/01/21 10:11 Urine Nitrite Negative (NEGATIVE) 05/01/21 10:11 Urine Bilirubin Negative (NEGATIVE) 05/01/21 10:11 Urine Urobilinogen Normal (NORMAL) 05/01/21 10:11 Ur Leukocyte Esterase Negative (NEGATIVE) 05/01/21 10:11 Urine RBC 0-2 /HPF (0-3) 05/01/21 10:11 Urine WBC None seen /HPF (0-5) 05/01/21 10:11 Ur Squamous Epith Cells Rare /HPF (NEGATIVE) 05/01/21 10:11 Urine Bacteria Negative /HPF (NEGATIVE) 05/01/21 10:11 Ur Culture Indicated? No/not indicated 05/01/21 10:11 SARS CoV-2 RNA Rapid ALTHEA Positive (NEGATIVE) A 05/01/21 13:51 - Plan (1) Pneumonia due to COVID-19 virus Status: Acute Plan: SUPPLEMENTAL OXYGEN, ELIQUIS 10MG PO BID, HUMULIN R SLIDING SCALE, LANTUS 15UNITS SC DAILY, IV FLUIDS, IV ANTIBITOTICS, NEB TX, IV REMDESIVIR, IV STEROIDS, IMMUNE SUPPLEMENTS, RESUME HOME MEDS (2) Pulmonary embolism Status: Acute Qualifiers: Pulmonary embolism type: unspecified Chronicity: acute Acute cor pulmo nale presence: unspecified Qualified Code(s): I26.99 - Other pulmonary embolism without acute cor pulmonale (3) Hypoxia Status: Acute (4) Diabetes mellitus Status: Chronic Qualifiers: Diabetes mellitus type: type 2 Diabetes mellitus 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
[2021-05-04] MEDS: NovoLIN R (or HumuLIN R) SUBCUT PRN ×2 (16:40→20:37)
[2021-05-04] MEDS: NS 1,000 ML IV 1,000 ML IV SCH (17:40)
[2021-05-04] MEDS: SNACK - Diabetic Appropriate PO SCH (20:33)
[2021-05-04] MEDS: CHRONULAC PO SCH (20:36)
[2021-05-05] MEDS: VITAMIN C PO SCH ×2 (03:45→09:26)
[2021-05-05] MEDS: SOLU-Medrol 40 MG VIAL IVP SCH ×2 (05:01→14:56)
[2021-05-05] MEDS: ZOFRAN TAB 4 MG PO PRN (05:01)
[2021-05-05] MEDS: NORCO 7.5/325 MG TAB PO PRN (05:02)
[2021-05-05] MEDS: DIABETA PO SCH ×2 (05:02→14:56)
[2021-05-05 05:33] LABS: BASOPHILS % (AUTO) 0.1 % (0.2-1.0); HEMATOCRIT 27.7 % (36.0-47.0); HEMOGLOBIN 9.4 g/dL (12.0-16.0); LYMPHOCYTES # (AUTO) 0.9 X10^3/uL (1.3-2.9); MEAN CORPUSCULAR HEMOGLOBIN 28.4 pg (27.0-34.0); MEAN CORPUSCULAR HGB CONC 33.7 g/dL (33.0-35.0); MEAN CORPUSCULAR VOLUME 84.2 fL (80.0-100.0); MEAN PLATELET VOLUME 9.3 fL (7.4-11.0); MONOCYTES # (AUTO) 0.6 x10^3/uL (0.3-0.8); MONOCYTES % (AUTO) 5.8 % (0.0-13.0); NEUTROPHILS # (AUTO) 8.9 x10^3/uL (2.2-4.8); NEUTROPHILS % (AUTO) 85.1 % (42.0-75.0); RED BLOOD COUNT 3.29 X10^6/uL (3.5-5.4); RED CELL DISTRIBUTION WIDTH 15.3 % (11.6-16.5); WHITE BLOOD COUNT 10.4 X10^3/uL (3.6-10.0)
[2021-05-05] MEDS: NovoLIN R (or HumuLIN R) SUBCUT PRN ×2 (05:51→11:54)
[2021-05-05 06:06] LABS: ALBUMIN 2.8 g/dL (3.4-5.0); CALCIUM 7.9 mg/dL (8.5-10.1); COR CA(FOR HYPOALB) 8.9 mg/dL (8.5-10.1); CREATININE 1.89 mg/dL (0.55-1.02); TOTAL PROTEIN 6.2 g/dL (6.4-8.2)
--- NOTE | 2021-05-05 06:20 | RAD ---
HISTORYSOBSTUDYCHEST, 1 SEDLEEUISGPEMF14/03/2022.TECHNIQUEAP view of the chestFINDINGSRight IJ central line in good position.[The cardiac and mediastinal contours are within normal limits. The lungs are clear without focal consolidation or segmental collapse. No pleural effusion or pneumothorax.]IMPRESSIONNo acute pulmonary process.Electronically signed by: Jn Zuniga (May 05, 2021 06:19:18)
[2021-05-05] MEDS: PHENERGAN INJ 25 MG IM PRN (09:12)
[2021-05-05] MEDS: ACTOS PO SCH (09:21)
[2021-05-05] MEDS: ALDACTONE TAB 25 MG PO SCH (09:22)
[2021-05-05] MEDS: ELIQUIS PO SCH (09:23)
[2021-05-05] MEDS: IVERMECTIN PO SCH (09:23)
[2021-05-05] MEDS: LANTUS SC SCH (09:23)
[2021-05-05] MEDS: CRESTOR TAB 10 MG PO SCH (09:23)
[2021-05-05] MEDS: CYMBALTA PO SCH (09:23)
[2021-05-05] MEDS: LEVAQUIN PREMIX IV 250 MG 250 MG/50 ML BAG IV SCH (09:24)
[2021-05-05] MEDS: LYRICA CAP 75 mg PO SCH (09:24)
[2021-05-05] MEDS: PEPCID TAB 20 MG PO SCH (09:24)
[2021-05-05] MEDS: MICRO K EXTEN CAP 10 MEQ PO SCH (09:24)
[2021-05-05] MEDS: REQUIP PO SCH (09:25)
[2021-05-05] MEDS: REMDESIVIR 100 MG in NS 250 ML IV 250 ML IV SCH (09:25)
[2021-05-05] MEDS: BROVANA IN SCH (09:25)
[2021-05-05] MEDS: TOPAMAX TAB 100 MG PO SCH (09:25)
[2021-05-05] MEDS: SINGULAIR TAB 10 MG PO SCH (09:25)
[2021-05-05] MEDS: SYNTHROID 112 mcg TAB PO SCH (09:25)
[2021-05-05] MEDS: PROTONIX TAB 40 MG PO SCH (09:25)
[2021-05-05] MEDS: PULMICORT NEB TX 0.5 MG NEB SCH (09:25)
[2021-05-05] MEDS: TOPROL XL PO SCH (09:25)
[2021-05-05] MEDS: VITAMIN A PO SCH (09:26)
[2021-05-05] MEDS: ZESTRIL TAB 10 MG PO SCH (09:26)
[2021-05-05] MEDS: VIBRAMYCIN PO SCH (09:26)
[2021-05-05] MEDS: ZINC SULFATE PO SCH (09:26)
[2021-05-05] MEDS: VITAMIN D3 125 mcg (5,000 UNITS) PO SCH (09:26)
[2021-05-05] MEDS: ZyrTEC TAB 10 MG PO SCH (09:26)
[2021-05-05] MEDS: TYLENOL 325 MG TAB PO PRN (09:36)
[2021-05-05] MEDS: LEVSIN/MAALOX/LIDOC VISC PO PRN (09:37)
[2021-05-05] MEDS: DUONEB 0.5 MG/3 MG (3 mL) NEB SCH (10:19)
[2021-05-05 11:26] VITALS: BP 127/60
== END 2021-05-05 14:50 | disposition home or self-care (01) | DRG 177 ==
LOC: ER 09:29 → ICU 17:12
PROVIDERS: ADMIT Internal Medicine; ATTEND Internal Medicine

== ENCOUNTER 2021-05-08 19:11 | Inpatient (IN) ==
--- NOTE | 2021-05-08 21:43 | DR.NAUSEAF ---
HPI Time Seen Time Seen by Provider: 05/08/21 21:40 Primary Care Physician Primary Care Physician: ZEINAB DUNLAP HPI Comment HPI Comment: PATIENT WITH A HISTORY OF PULMONARY EMBOLISM, HOSPITALIZED FOR COVID FOR A DURATION OF 1 WEEK, DISCHARGED FROM HOSPITAL 3 DAYS AGO, NOW HAS ONSET OF EMESIS X 3 ASSOCIATED WITH ABDOMINAL PAIN. DENIES DIARRHEA, FEVER, CHILLS AND CHEST PAIN. Complaints Chief Complaint Doctors Comments: NAUSEA, EMESIS Chief Complaint:: PATIENT STATES SHE GOT DISCHARGED FROM HOSPITAL ON SATURDAY AFTER DX OF COVID, BLOOD CLOTS, AND PNEUMONIA. STATES TODAY SHE STARTED FEELING WORSE. STATES SHE IS HAVING N/V AND ABD PAIN. STATES SHE HAS TAKEN TYLENOL AND ZOFRAN X2 AND UNABLE TO GET MEDICATION DOWN. PATIENT C/O NECK PAIN AFTER HAVING PICC LINE IN NECK. Self Treatment fo Chief Complaint: TYLENOL AT 6PM ZOFRAN AT 6PM COVID-19 Coronavirus risk:travel/contact w/high risk person: No Has patient experienced Coronavirus symptoms: No Source History Provided: Patient Mode of Arrival Mode of Arrival: Ambulatory Timing Onset of Chief Complaint: 05/08/21 Severity Number of episodes of vomiting over last 24 hours: 3 Context Onset: Spontaneous Associated Signs and Symptoms Abdominal Pain Quality: Burning and Cramping Abdominal Pain Location: Diffuse Symptoms: Abdominal Pain PMH PMH Past Medical History: Yes Past Medical History: Asthma, Coronary Artery Disease, Diabetes, GERD, Hypertension and Renal Disease Past Surgical History: Yes Surgical History: Appendectomy, Cholecystectomy, 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 Surgery and Hysterectomy Family History History of Family Medical Conditions: Yes Family Medical History: Diabetes Mellitus and Hypertension Social History Do you use any recreational Drugs:: No Travel Risk Coronavirus risk:travel/contact w/high risk person: No Has patient experienced Coronavirus symptoms: No Infectious screening Have you traveled outside the country in the last 6 months?: No Isolation: Standard ROS Review of Systems Constitutional: No Symptoms Reported Eyes: No Symptoms Reported ENTM: No Symptoms Reported Respiratoy: No Symptoms Reported Cardiovascular: No Symptoms Reported Gastrointestinal/Abdominal: Abdominal Pain and Vomiting Genitourinary: No Symptoms Reported Neurological: No Symptoms Reported Musculoskeletal: No Symptoms Reported Integumentary: No Symptoms Reported Hematologic/Lymphatic: No Symptoms Reported Endocrine: No Symptoms Reported Psychiatric: No Symptoms Reported All Other Systems: Reviewed and Negative PE Vital Signs Vitals: Temperature 97.0 F Pulse Rate 83 Respiratory Rate 20 Blood Pressure [Left Arm] 158/70 Blood Pressure 167/68 O2 Sat by Pulse Oximetry 99 General Limitations: No Limitations General Appearance: Alert Head Head Exam: Normal Inspection and Atraumatic Eyes Eye exam: Normal Appearance ENT ENT Exam: Normal Exam and Normal Oropharynx Neck Neck Exam: Normal Inspection and Full ROM Respiratory Respiratory Exam: Normal Lung Sounds Bilat Respiratory Exam: Bilateral: Clear to Auscultation Cardiovascular Cardiovascular Exam: Regular Rate and Normal Rhythm Abdominal Exam Abdominal Exam: Normal Inspection, Normal Bowel Sounds, Soft and Tenderness (MODERATE EPIGASTRIC TENDERNESS) Extremities Extremities Exam: Normal Inspection and Full ROM Back Back Exam: Normal Inspection and Full ROM Neurologic Neurological Exam: Alert, Oriented X3 and CN II-XII Intact Skin Skin Exam: Warm and Dry MDM Differential Diagnosis Differential Diagnosis: Considerations may Include:: Gastritis, Gastroenteritis, Inflammatory BD and PUD COURSE Treatment Treatment: IV NORMAL SALINE 500ML AT 200ML/HR, ZOFRAN 4MG, PROTONIX 40MG IV Consultation Call Returned: 00:10 Consultation Comments: DISCUSSED WITH DR BAUTISTA FOR OBSERVATION ROR Labs Reviewed Laboratory Results Reviewed?: Yes Result Diagrams: 05/08/21 22:22 05/08/21 22: Laboratory: WBC 15.7 X10^3/uL (3.6-10.0) H 05/08/21 22: RBC 3.58 X10^6/uL (3.5-5.4) 05/08/21 22: Hgb 9.9 g/dL (12.0-16.0) L 05/08/21 22: Hct 29.8 % (36.0-47.0) L 05/08/21 22: MCV 83.4 fL (80.0-100.0) 05/08/21 22: MCH 27.7 pg (27.0-34.0) 05/08/21 22: MCHC 33.3 g/dL (33.0-35.0) 05/08/21 22: RDW 14.8 % (11.6-16.5) 05/08/21 22: Plt Count 312 X10^3/uL (150.0-450.0) 05/08/21 22:22 MPV 9.4 fL (7.4-11.0) 05/08/21 22: Neut % (Auto) 84.0 % (42.0-75.0) H 05/08/21 22: Lymph % (Auto) 8.6 % (21.0-51.0) L 05/08/21 22: [place] % (Auto) 6.7 % (0.0-13.0) 05/08/21 22: Eos % (Auto) 0.7 % (0.9-2.9) L 05/08/21 22: Baso % (Auto) 0 % (0.2-1.0) L 05/08/21 22: Neut # (Auto) 13.2 x10^3/uL (2.2-4.8) H 05/08/21 22: Lymph # (Auto) 1.4 X10^3/uL (1.3-2.9) 05/08/21 22: [place] # (Auto) 1.0 x10^3/uL (0.3-0.8) H 05/08/21 22: Eos # (Auto) 0.1 x10^3/uL (0.0-0.2) 05/08/21: Baso # (Auto) 0.0 X10^3/uL (0.0-0.1) 05/08/21: Absolute Nucleated RBC 0.1 /100WBC 05/08/21 22:22 Sodium 139 mmol/L (136-145) 05/08/21 22:22 Corrected Sodium 147 mmol/L (136-145) H 05/08/21 22:22 Potassium 5.3 mmol/L (3.5-5.1) H 05/08/21 22: Chloride 108 mmol/L (98-107) H 05/08/21 22:22 Carbon Dioxide 25.0 mmol/L (21-32) 05/08/21 22: BUN 49 mg/dL (7-18) H 05/08/21 22:22 Creatinine 1.68 mg/dL (0.55-1.02) H 05/08/21 22:22 Est GFR (MDRD) Af Amer 40 (>60) L 05/08/21 22:22 Est GFR (MDRD) Non-Af 33 (>60) L 05/08/21 22: Glucose 419 mg/dL (65-99) H 05/08/21 22:22 Calcium 8.1 mg/dL (8.5-10.1) L 05/08/21 22:22 Corrected Calcium 8.8 mg/dL (8.5-10.1) 05/08/21 22:22 Total Bilirubin 0.20 mg/dL (0.2-1.0) 05/08/21 22:22 AST 8 Units/L (15-37) L 05/08/21 22:22 ALT 17 Units/L (12-78) 05/08/21 22:22 Alkaline Phosphatase 77 Units/L (46-116) 05/08/21 22:22 Total Protein 6.7 g/dL (6.4-8.2) 05/08/21 22:22 Albumin 3.1 g/dL (3.4-5.0) L 05/08/21 22:22 Globulin 3.6 g/dL (2.5-4.5) 05/08/21 22:22 Albumin/Globulin Ratio 0.9 Ratio (1.1-2.1) L 05/08/21 22:22 Amylase 53 Units/L (25-115) 05/08/21 22:22 Lipase 904 Units/L (73-393) H 05/08/21 22:22 Specimen Type Clean catch urine 05/08/21 23:06 Urine Color Yellow (YELLOW) 05/08/21 23:06 Urine Appearance Clear (CLEAR) 05/08/21 23:06 Urine pH 6.5 (5.0 - 8.0) 05/08/21 23:06 Ur Specific [place] 1.010 (1.000-1.030) 05/08/21 23:06 Urine Protein 1+ (NEGATIVE) 05/08/21 23:06 Urine Glucose (UA) 4+ (NEGATIVE) 05/08/21 23:06 Urine Ketones Negative (NEGATIVE) 05/08/21 23:06 Urine Occult Blood Negative (NEGATIVE) 05/08/21 23:06 Urine Nitrite Negative (NEGATIVE) 05/08/21 23:06 Urine Bilirubin Negative (NEGATIVE) 05/08/21 23:06 Urine Urobilinogen Normal (NORMAL) 05/08/21 23:06 Ur Leukocyte Esterase Negative (NEGATIVE) 05/08/21 23:06 Urine RBC 0-2 /HPF (0-3) 05/08/21 23:06 Urine WBC 0-2 /HPF (0-5) 05/08/21 23:06 Ur Squamous Epith Cells Few /HPF (NEGATIVE) 05/08/21 23:06 Urine Bacteria Trace /HPF (NEGATIVE) 05/08/21 23:06 Ur Culture Indicated? No/not indicated 05/08/21 23:06 XRAY XRAY Interpreted by: Radiologist (THE ABDOMEN PELVIS WITHOUT CONTRAST CONSISTENT WITH NORMAL SPLEEN, LIVER AND PANCREAS UNREMARKABLE, NO EVIDENCE OF STONE, NO SIGNS OF OBSTRUCTIVE UROPATHY) Opioid Opioid Risk Tool Age (José Luis box if 16-45): No History of Preadolescent Sexual Abuse: No Total: 0 Total Score Risk Category: Low Risk Copyright: Cruz ORTEGA predicting aberrant behaviors Diagnosis Discharge Problem: Acute pancreatitis
[2021-05-08] MEDS ORDERED: NS 500 ML IV 500 ML IV STA (21:57)
[2021-05-08] MEDS ORDERED: ZOFRAN INJ 4 MG VIAL IVP ONE (22:03)
[2021-05-08] MEDS ORDERED: PROTONIX INJ 40 MG VIAL IVP ONE (22:03)
[2021-05-08] MEDS ORDERED: PROTONIX INJ 40 MG VIAL ONE (22:27)
[2021-05-08] MEDS ORDERED: ZOFRAN INJ 4 MG VIAL ONE (22:27)
[2021-05-08] MEDS ORDERED: NS 500 ML IV 500 ML IV ONE (22:27)
[2021-05-08 22:41] LABS: BASOPHILS % (AUTO) 0 % (0.2-1.0); EOSINOPHILS # (AUTO) 0.1 x10^3/uL (0.0-0.2); EOSINOPHILS % (AUTO) 0.7 % (0.9-2.9); HEMATOCRIT 29.8 % (36.0-47.0); HEMOGLOBIN 9.9 g/dL (12.0-16.0); LYMPHOCYTES # (AUTO) 1.4 X10^3/uL (1.3-2.9); LYMPHOCYTES % (AUTO) 8.6 % (21.0-51.0); MEAN CORPUSCULAR HEMOGLOBIN 27.7 pg (27.0-34.0); MEAN CORPUSCULAR HGB CONC 33.3 g/dL (33.0-35.0); MEAN CORPUSCULAR VOLUME 83.4 fL (80.0-100.0); MEAN PLATELET VOLUME 9.4 fL (7.4-11.0); MONOCYTES % (AUTO) 6.7 % (0.0-13.0); NEUTROPHILS # (AUTO) 13.2 x10^3/uL (2.2-4.8); RED BLOOD COUNT 3.58 X10^6/uL (3.5-5.4); RED CELL DISTRIBUTION WIDTH 14.8 % (11.6-16.5); WHITE BLOOD COUNT 15.7 X10^3/uL (3.6-10.0)
[2021-05-08 22:52] LABS: ALBUMIN 3.1 g/dL (3.4-5.0); CALCIUM 8.1 mg/dL (8.5-10.1); COR CA(FOR HYPOALB) 8.8 mg/dL (8.5-10.1); CREATININE 1.68 mg/dL (0.55-1.02); TOTAL PROTEIN 6.7 g/dL (6.4-8.2)
[2021-05-08] MEDS ORDERED: MORPHINE SULFATE INJ 4 MG IVP ONE (23:00)
[2021-05-08] MEDS ORDERED: MORPHINE SULFATE INJ 4 MG ONE (23:22)
--- NOTE | 2021-05-08 23:58 | CT ---
STUDY: CT ABDOMEN AND PELVIS WITHOUT IV CONTRASTCOMPARISON: NoneTECHNIQUE: Axial images were obtained of the abdomen and pelvis without IV contrast. Sagittal and coronal reformatted images were provided. All images were reviewed in a variety of windows and levels.RADIATION REDUCTION TECHNIQUE: Automated exposure control, adjustment of the mA or kV according to patient size, or iterative reconstruction techniques were used.HISTORY: DISCHARGED FROM HOSPITAL ON SATURDAY AFTER DX OF COVID, BLOOD CLOTS, AND PNEUMONIA. STATES TODAY SHE STARTED FEELING WORSE. STATES SHE IS HAVING N/V AND ABD PAIN.FINDINGS:Please note that lack of IV contrast does limit evaluation of the soft tissues and vascular detail.The visualized lower lung zones are clear. The heart size is within normal limits. There is no evidence of a pericardial effusion.The liver, spleen, pancreas, adrenal glands, and kidneys are grossly unremarkable. The patient is status post cholecystectomy.There is no evidence of stones or signs of obstructive uropathy.The patient is status post hysterectomy.The stomach, small bowel, and colon are grossly unremarkable. A few scattered diverticula are seen without evidence of diverticulitis. There are no inflammatory changes in the right lower quadrant to suggest secondary signs of acute appendicitis. The appendix is not visualized on this exam.There is no evidence of retroperitoneal or mesenteric lymphadenopathy.The visualized bones demonstrate degenerative changes. There are no concerning lytic or blastic lesions identified.IMPRESSION:- No evidence of stones or signs of obstructive uropathy- Status post cholecystectomyElectronically signed by: Lul Dooley (May 08, 2021 23:57:09)
[2021-05-09 00:15] LABS: APPEARANCE,URINE CLEAR (CLEAR); COLOR,URINE YELLOW (YELLOW); GLUCOSE, URINE 4+ (NEGATIVE); PH,URINE 6.5 (5.0 - 8.0); PROTEIN,URINE 1+ (NEGATIVE)
[2021-05-09 00:16] LABS: BACTERIA,URINE TRACE /HPF (NEGATIVE); BILIRUBIN,URINE NEGATIVE (NEGATIVE); BLOOD/HEMOGLOBIN,URINE NEGATIVE (NEGATIVE); KETONES,URINE NEGATIVE (NEGATIVE); LEUKOCYTE ESTERASE ,URINE NEGATIVE (NEGATIVE); NITRITES,URINE NEGATIVE (NEGATIVE); RBC,URINE 0-2 /HPF (0-3); SQUAMOUS EPITHELIAL CELL,UR FEW /HPF (NEGATIVE); UROBILINOGEN,URINE NORMAL (NORMAL)
[2021-05-09] MEDS ORDERED: APIXABAN 5 MG SCH (02:47)
[2021-05-09] MEDS ORDERED: PROVENTIL NEB TX 0.083% 2.5MG/ 3ML IN SCH (02:47)
[2021-05-09] MEDS: NS 1,000 ML IV 1,000 ML IV SCH ×5 (02:50→21:01)
[2021-05-09] MEDS: NovoLIN R (or HumuLIN R) SC PRN (02:50)
[2021-05-09 05:27] LABS: BASOPHILS % (AUTO) 0.1 % (0.2-1.0); EOSINOPHILS # (AUTO) 0.1 x10^3/uL (0.0-0.2); EOSINOPHILS % (AUTO) 1.1 % (0.9-2.9); HEMATOCRIT 28.3 % (36.0-47.0); HEMOGLOBIN 9.4 g/dL (12.0-16.0); LYMPHOCYTES # (AUTO) 2.3 X10^3/uL (1.3-2.9); LYMPHOCYTES % (AUTO) 18.8 % (21.0-51.0); MEAN CORPUSCULAR HEMOGLOBIN 27.6 pg (27.0-34.0); MEAN CORPUSCULAR HGB CONC 33.2 g/dL (33.0-35.0); MEAN CORPUSCULAR VOLUME 83.2 fL (80.0-100.0); MEAN PLATELET VOLUME 9.2 fL (7.4-11.0); MONOCYTES # (AUTO) 1.1 x10^3/uL (0.3-0.8); MONOCYTES % (AUTO) 8.9 % (0.0-13.0); NEUTROPHILS # (AUTO) 8.6 x10^3/uL (2.2-4.8); NEUTROPHILS % (AUTO) 71.1 % (42.0-75.0); RED CELL DISTRIBUTION WIDTH 14.7 % (11.6-16.5)
[2021-05-09 05:40] LABS: ALBUMIN 2.9 g/dL (3.4-5.0); CALCIUM 7.7 mg/dL (8.5-10.1); CARBON DIOXIDE 25.5 mmol/L (21-32); COR CA(FOR HYPOALB) 8.6 mg/dL (8.5-10.1); CREATININE 1.4 mg/dL (0.55-1.02); TOTAL PROTEIN 6.3 g/dL (6.4-8.2)
[2021-05-09] MEDS ORDERED: PULMICORT NEB TX 0.5 MG NEB ONE (07:22)
[2021-05-09] MEDS ORDERED: BROVANA ONE (07:22)
[2021-05-09] MEDS: ZOFRAN INJ 4 MG VIAL IVP PRN ×2 (07:48→23:54)
[2021-05-09] MEDS: PULMICORT NEB TX 0.5 MG NEB SCH ×2 (08:15→20:53)
[2021-05-09] MEDS: BROVANA IN SCH ×2 (08:15→20:53)
[2021-05-09] MEDS: MORPHINE SULFATE INJ 4 MG IVP PRN ×2 (08:27→23:54)
[2021-05-09] MEDS: CYMBALTA PO SCH (08:41)
[2021-05-09] MEDS: SINGULAIR TAB 10 MG PO SCH (08:41)
[2021-05-09] MEDS: ELIQUIS PO SCH ×2 (08:41→20:20)
[2021-05-09] MEDS: ZESTRIL TAB 10 MG PO SCH (08:42)
[2021-05-09] MEDS: SYNTHROID 112 mcg TAB PO SCH (08:42)
[2021-05-09] MEDS: TOPROL XL PO SCH (08:42)
[2021-05-09] MEDS ORDERED: PHENERGAN TAB 25 MG PO ONE (14:30)
[2021-05-09] MEDS: PHENERGAN TAB 25 MG PO PRN ×2 (14:33→20:33)
[2021-05-09] MEDS: APRESOLINE INJ 20 MG VIAL IVP PRN (20:18)
[2021-05-10] MEDS ORDERED: VENTOLIN or PROAIR HFA IN PRN (01:30)
[2021-05-10] MEDS ORDERED: MOTRIN TAB 800 MG PO PRN (01:30)
[2021-05-10] MEDS ORDERED: PROVENTIL NEB TX 0.083% 2.5MG/ 3ML NEB PRN (01:36)
[2021-05-10] MEDS: IPRATROPIUM BROMIDE 42 MCG/SPRAY ENOSTRIL SCH ×4 (01:47→21:35)
[2021-05-10] MEDS: NS 1,000 ML IV 1,000 ML IV SCH ×4 (02:20→19:33)
[2021-05-10] MEDS: NovoLIN R (or HumuLIN R) SC PRN (02:30)
[2021-05-10 05:33] LABS: BASOPHILS % (AUTO) 0.4 % (0.2-1.0); EOSINOPHILS # (AUTO) 0.3 x10^3/uL (0.0-0.2); EOSINOPHILS % (AUTO) 2.9 % (0.9-2.9); HEMOGLOBIN 8.8 g/dL (12.0-16.0); LYMPHOCYTES # (AUTO) 2.2 X10^3/uL (1.3-2.9); LYMPHOCYTES % (AUTO) 24.1 % (21.0-51.0); MEAN CORPUSCULAR HEMOGLOBIN 28.1 pg (27.0-34.0); MEAN CORPUSCULAR HGB CONC 33.7 g/dL (33.0-35.0); MEAN CORPUSCULAR VOLUME 83.3 fL (80.0-100.0); MEAN PLATELET VOLUME 9.2 fL (7.4-11.0); MONOCYTES # (AUTO) 0.9 x10^3/uL (0.3-0.8); MONOCYTES % (AUTO) 9.8 % (0.0-13.0); NEUTROPHILS # (AUTO) 5.6 x10^3/uL (2.2-4.8); NEUTROPHILS % (AUTO) 62.8 % (42.0-75.0); RED BLOOD COUNT 3.12 X10^6/uL (3.5-5.4); WHITE BLOOD COUNT 8.9 X10^3/uL (3.6-10.0)
[2021-05-10 05:42] LABS: ALANINE AMINOTRANSFERASE 14 Units/L (12-78); ALBUMIN 2.5 g/dL (3.4-5.0); ALKALINE PHOSPHATASE 60 Units/L (46-116); AMYLASE 36 Units/L (25-115); ASPARTATE AMINO TRANSFERASE 12 Units/L (15-37); BLOOD UREA NITROGEN 28 mg/dL (7-18); CALCIUM 7.5 mg/dL (8.5-10.1); CARBON DIOXIDE 23.9 mmol/L (21-32); CHLORIDE 113 mmol/L (98-107); COR CA(FOR HYPOALB) 8.7 mg/dL (8.5-10.1); COR NA(FOR HYPERGLY) 147 mmol/L (136-145); CREATININE 1.09 mg/dL (0.55-1.02); LIPASE 255 Units/L (73-393); SODIUM 145 mmol/L (136-145); TOTAL PROTEIN 5.4 g/dL (6.4-8.2); eGFR NON BLACK RACES 54 (>60)
[2021-05-10] MEDS ORDERED: PATIENT'S HOME MEDICATION (Ferrous Sulfate 325 mg (65 mg iron) Tablet) PO SCH (09:00)
[2021-05-10] MEDS: CYMBALTA PO SCH (09:01)
[2021-05-10] MEDS: SINGULAIR TAB 10 MG PO SCH (09:01)
[2021-05-10] MEDS: FERROUS GLUCONATE PO SCH (09:01)
[2021-05-10] MEDS: ELIQUIS PO SCH ×2 (09:01→20:10)
[2021-05-10] MEDS: SYNTHROID 112 mcg TAB PO SCH (09:02)
[2021-05-10] MEDS: LASIX PO SCH (09:02)
[2021-05-10] MEDS: LUVOX PO SCH ×2 (09:02→20:10)
[2021-05-10] MEDS: BROVANA IN SCH ×2 (09:02→21:04)
[2021-05-10] MEDS: TOPROL XL PO SCH (09:02)
[2021-05-10] MEDS: PHENERGAN TAB 25 MG PO PRN (09:03)
[2021-05-10] MEDS: ZyrTEC TAB 10 MG PO SCH (09:03)
[2021-05-10] MEDS: PULMICORT NEB TX 0.5 MG NEB SCH ×2 (09:03→21:03)
[2021-05-10] MEDS: ZESTRIL TAB 10 MG PO SCH (09:03)
[2021-05-10] MEDS: LANTUS SC SCH (09:03)
[2021-05-10] MEDS: MORPHINE SULFATE INJ 4 MG IVP PRN (16:05)
[2021-05-10] MEDS: SNACK - Diabetic Appropriate PO SCH (20:09)
[2021-05-10] MEDS: APRESOLINE INJ 20 MG VIAL IVP PRN (20:10)
[2021-05-11] MEDS: NS 1,000 ML IV 1,000 ML IV SCH ×3 (01:19→17:25)
--- NOTE | 2021-05-11 02:44 | DR.H&P ---
H&P - History & Physical for Day of: H&P Date: 05/08/21 - Chief Complaint Chief Complaint: N/V abdominal pain - History of Present Illness History of Present Illness: Patient is a 60 year old white female who was admitted due to nausea vomiting and abdominal pain. Patient was recently admitted due to COVID and is recovered. Amylase and lipase elevated. PCP in [place]. Reports symptoms present x2 days and progressively getting worse. States she is unable to keep fluids and food down. Denies CP, changes in bowel or bladder. No other concerns at present. PMh HTN, DM. Patient denies ever having pancreatitis in the past. Gallbladder removed in the past. - Past Medical History Past Medical History: Coronary Artery Disease, Hypertension, Diabetes, Renal Disease, Asthma, GERD - Past Surgical History Surgical History: Appendectomy, Cholecystectomy, TECHNICAL SALES DIRECTOR Surgery, Hysterectomy - Family History Family Medical History: Diabetes Mellitus, Hypertension - Social History Does patient currently use any type of tobacco product: No Have you used tobacco products in the last 12 months: No Type of Tobacco Use: N Alcohol Use: None Drug Use: Prescription Drugs - Medications Home Medications: propoxyphene [From Darvon] Allergy (Verified 05/01/21 09:29) warfarin [From Coumadin] Allergy (Verified 05/01/21 09:29) CONTINUE taking the following medications albuterol sulfate [ProAir HFA] 2 puff INHALATION QID PRN 05/09/21 [History] apixaban [Eliquis] 5 mg PO BID 05/09/21 [History] cetirizine 10 mg PO DAILY 05/09/21 [History] ferrous sulfate 325 mg PO DAILY 05/09/21 [History] ibuprofen 800 mg PO TID 05/09/21 [History] insulin glargine [Lantus U-100 Insulin] 15 unit SUBCUT DAILY 05/09/21 [History] - Review of Systems Constitutional: See HPI Eyes: See HPI ENT: See HPI Respiratory: See HPI Cardiovascular: See HPI Gastrointestinal: See HPI Genitourinary: See HPI Musculoskeletal: See HPI Skin: See HPI Neurological: See HPI - Physical Exam Vital Signs: Temperature 97.7 F Pulse Rate [Left] 70 Pulse Rate 67 Respiratory Rate 18 Blood Pressure [Left Arm] 152/67 Blood Pressure 167/68 O2 Sat by Pulse Oximetry 98 Oriented: Normal, Time, Person, Place Eyes: Normal Ear: Normal Nose: Normal Throat: Normal Respiratory: Clear Throughout Cardiovascular: Normal : Normal Auscultation: Bowel Sounds: Normal Palpation: Normal Tenderness: Diffuse, Epigastric, Moderate Skin: Normal Musculoskeletal: Normal Psychiatric: Normal Mood Description: Calm Affect: Normal Speech Pattern: Clear, Appropriate - Assessment/Plan (1) Nausea & vomiting Status: Acute (2) Abdominal pain Status: Acute (3) Acute pancreatitis Status: Acute Plan: Trend labs. Nausea control. IV fluids. NPO. Repeat labs in am - Allergies Allergies/Adverse Reactions: Allergies Allergy/AdvReac Type Severity Reaction Status Date / Time propoxyphene [From Darvon] Allergy Verified 05/01/21 09:29 warfarin [From Coumadin] Allergy Verified 05/01/21 09:29
--- NOTE | 2021-05-11 02:49 | PCM.PROG ---
Progress Note - Progress Note for Day of Date of Exam: 05/09/21 - Subjective Subjective: Patient admitted as per HPI. Symptoms improved. amylase and lipase improved. Will advance diet as tolerated. - Past Medical Family Social History Past Med/Fam/Surg Hx: No changes since H&P Allergies: Allergies propoxyphene [From Darvon] Allergy (Verified 05/01/21 09:29) warfarin [From Coumadin] Allergy (Verified 05/01/21 09:29) - Review of Systems ROS: No change since H&P - Vital Signs and I&O's Vital Signs: Temperature 97.7 F Pulse Rate [Left] 70 Pulse Rate 67 Respiratory Rate 18 Blood Pressure [Left Arm] 152/67 Blood Pressure 167/68 O2 Sat by Pulse Oximetry 98 Intake and Output: Intake & Output 05/08/21 05/09/21 05/10/21 05/11/21 23:59 23:59 23:59 23:59 Intake Total 1111 / 1111 2795 / 2795 Output Total 0 / 0 Balance 1111 / 1111 2795 / 2795 - Physical Exam Oriented: Normal, Time, Person, Place Eyes: Normal Ear: Normal Nose: Normal Throat: Normal Cardiovascular: Normal : Normal Auscultation: Bowel Sounds: Normal Palpation: Normal Tenderness: Diffuse, Epigastric, Moderate Skin: Normal Musculoskeletal: Normal Psychiatric: Normal Mood Description: Calm Affect: Normal Speech Pattern: Clear, Appropriate - Laboratory and Diagnostics Result Diagrams: 05/10/21 05:00 05/10/21 05:00 Labs: 05/08/21 22:29 Blood Blood Culture - Preliminary 05/08/21 22:22 Blood Blood Culture - Preliminary Laboratory WBC 8.9 X10^3/uL (3.6-10.0) 05/10/21 05:00 RBC 3.12 X10^6/uL (3.5-5.4) L 05/10/21 05:00 Hgb 8.8 g/dL (12.0-16.0) L 05/10/21 05:00 Hct 26.0 % (36.0-47.0) L 05/10/21 05:00 MCV 83.3 fL (80.0-100.0) 05/10/21 05:00 MCH 28.1 pg (27.0-34.0) 05/10/21 05:00 MCHC 33.7 g/dL (33.0-35.0) 05/10/21 05:00 RDW 15.0 % (11.6-16.5) 05/10/21 05:00 Plt Count 255 X10^3/uL (150.0-450.0) 05/10/21 05:00 MPV 9.2 fL (7.4-11.0) 05/10/21 05:00 Neut % (Auto) 62.8 % (42.0-75.0) 05/10/21 05:00 Lymph % (Auto) 24.1 % (21.0-51.0) 05/10/21 05:00 [place] % (Auto) 9.8 % (0.0-13.0) 05/10/21 05:00 Eos % (Auto) 2.9 % (0.9-2.9) 05/10/21 05:00 Baso % (Auto) 0.4 % (0.2-1.0) 05/10/21 05:00 Neut # (Auto) 5.6 x10^3/uL (2.2-4.8) H 05/10/21 05:00 Lymph # (Auto) 2.2 X10^3/uL (1.3-2.9) 05/10/21 05:00 [place] # (Auto) 0.9 x10^3/uL (0.3-0.8) H 05/10/21 05:00 Eos # (Auto) 0.3 x10^3/uL (0.0-0.2) H 05/10/21 05:00 Baso # (Auto) 0.0 X10^3/uL (0.0-0.1) 05/10/21 05:00 Absolute Nucleated RBC 0.0 /100WBC 05/10/21 05:00 Sodium 145 mmol/L (136-145) 05/10/21 05:00 Corrected Sodium 147 mmol/L (136-145) H 05/10/21 05:00 Potassium 4.9 mmol/L (3.5-5.1) 05/10/21 05:00 Chloride 113 mmol/L (98-107) H 05/10/21 05:00 Carbon Dioxide 23.9 mmol/L (21-32) 05/10/21 05:00 BUN 28 mg/dL (7-18) H 05/10/21 05:00 Creatinine 1.09 mg/dL (0.55-1.02) H 05/10/21 05:00 Est GFR (MDRD) Af Amer > 60 (>60) 05/10/21 05:00 Est GFR (MDRD) Non-Af 54 (>60) L 05/10/21 05:00 Glucose 191 mg/dL (65-99) H 05/10/21 05:00 POC Glucose (mg/dL) 163 mg/dL (65-99) H 05/10/21 19:01 Calcium 7.5 mg/dL (8.5-10.1) L 05/10/21 05:00 Corrected Calcium 8.7 mg/dL (8.5-10.1) 05/10/21 05:00 Total Bilirubin 0.30 mg/dL (0.2-1.0) 05/10/21 05:00 AST 12 Units/L (15-37) L 05/10/21 05:00 ALT 14 Units/L (12-78) 05/10/21 05:00 Alkaline Phosphatase 60 Units/L (46-116) 05/10/21 05:00 Total Protein 5.4 g/dL (6.4-8.2) L 05/10/21 05:00 Albumin 2.5 g/dL (3.4-5.0) L 05/10/21 05:00 Globulin 2.9 g/dL (2.5-4.5) 05/10/21 05:00 Albumin/Globulin Ratio 0.9 Ratio (1.1-2.1) L 05/10/21 05:00 Amylase 36 Units/L (25-115) 05/10/21 05:00 Lipase 255 Units/L (73-393) 05/10/21 05:00 Specimen Type Clean catch urine 05/08/21 23:06 Urine Color Yellow (YELLOW) 05/08/21 23:06 Urine Appearance Clear (CLEAR) 05/08/21 23:06 Urine pH 6.5 (5.0 - 8.0) 05/08/21 23:06 Ur Specific [place] 1.010 (1.000-1.030) 05/08/21 23:06 Urine Protein 1+ (NEGATIVE) 05/08/21 23:06 Urine Glucose (UA) 4+ (NEGATIVE) 05/08/21 23:06 Urine Ketones Negative (NEGATIVE) 05/08/21 23:06 Urine Occult Blood Negative (NEGATIVE) 05/08/21 23:06 Urine Nitrite Negative (NEGATIVE) 05/08/21 23:06 Urine Bilirubin Negative (NEGATIVE) 05/08/21 23:06 Urine Urobilinogen Normal (NORMAL) 05/08/21 23:06 Ur Leukocyte Esterase Negative (NEGATIVE) 05/08/21 23:06 Urine RBC 0-2 /HPF (0-3) 05/08/21 23:06 Urine WBC 0-2 /HPF (0-5) 05/08/21 23:06 Ur Squamous Epith Cells Few /HPF (NEGATIVE) 05/08/21 23:06 Urine Bacteria Trace /HPF (NEGATIVE) 05/08/21 23:06 Ur Culture Indicated? No/not indicated 05/08/21 23:06 - Plan (1) Nausea & vomiting Status: Acute (2) Abdominal pain Status: Acute (3) Acute pancreatitis Status: Acute Plan: Trend labs. Nausea control. IV fluids. Advance diet as tolerated. Plan for dc tomorrow. Repeat labs in am
--- NOTE | 2021-05-11 02:51 | PCM.PROG ---
Progress Note - Progress Note for Day of Date of Exam: 05/10/21 - Subjective Subjective: Patient admitted as per HPI. Symptoms returned. amylase and lipase resolved. Return diet to NPO. States last EGD 1 year ago in [place]. - Past Medical Family Social History Past Med/Fam/Surg Hx: No changes since H&P Allergies: Allergies propoxyphene [From Darvon] Allergy (Verified 05/01/21 09:29) warfarin [From Coumadin] Allergy (Verified 05/01/21 09:29) - Review of Systems ROS: No change since H&P - Vital Signs and I&O's Vital Signs: Temperature 97.7 F Pulse Rate [Left] 70 Pulse Rate 67 Respiratory Rate 18 Blood Pressure [Left Arm] 152/67 Blood Pressure 167/68 O2 Sat by Pulse Oximetry 98 Intake and Output: Intake & Output 05/08/21 05/09/21 05/10/21 05/11/21 23:59 23:59 23:59 23:59 Intake Total 1111 / 1111 2795 / 2795 Output Total 0 / 0 Balance 1111 / 1111 2795 / 2795 - Physical Exam Oriented: Normal, Time, Person, Place Eyes: Normal Ear: Normal Nose: Normal Throat: Normal Cardiovascular: Normal : Normal Auscultation: Bowel Sounds: Normal Palpation: Normal Tenderness: Diffuse, Epigastric, Moderate Skin: Normal Musculoskeletal: Normal Psychiatric: Normal Mood Description: Calm Affect: Normal Speech Pattern: Clear, Appropriate - Laboratory and Diagnostics Result Diagrams: 05/10/21 05:00 05/10/21 05:00 Labs: 05/08/21 22:29 Blood Blood Culture - Preliminary 05/08/21 22:22 Blood Blood Culture - Preliminary Laboratory WBC 8.9 X10^3/uL (3.6-10.0) 05/10/21 05:00 RBC 3.12 X10^6/uL (3.5-5.4) L 05/10/21 05:00 Hgb 8.8 g/dL (12.0-16.0) L 05/10/21 05:00 Hct 26.0 % (36.0-47.0) L 05/10/21 05:00 MCV 83.3 fL (80.0-100.0) 05/10/21 05:00 MCH 28.1 pg (27.0-34.0) 05/10/21 05:00 MCHC 33.7 g/dL (33.0-35.0) 05/10/21 05:00 RDW 15.0 % (11.6-16.5) 05/10/21 05:00 Plt Count 255 X10^3/uL (150.0-450.0) 05/10/21 05:00 MPV 9.2 fL (7.4-11.0) 05/10/21 05:00 Neut % (Auto) 62.8 % (42.0-75.0) 05/10/21 05:00 Lymph % (Auto) 24.1 % (21.0-51.0) 05/10/21 05:00 [place] % (Auto) 9.8 % (0.0-13.0) 05/10/21 05:00 Eos % (Auto) 2.9 % (0.9-2.9) 05/10/21 05:00 Baso % (Auto) 0.4 % (0.2-1.0) 05/10/21 05:00 Neut # (Auto) 5.6 x10^3/uL (2.2-4.8) H 05/10/21 05:00 Lymph # (Auto) 2.2 X10^3/uL (1.3-2.9) 05/10/21 05:00 [place] # (Auto) 0.9 x10^3/uL (0.3-0.8) H 05/10/21 05:00 Eos # (Auto) 0.3 x10^3/uL (0.0-0.2) H 05/10/21 05:00 Baso # (Auto) 0.0 X10^3/uL (0.0-0.1) 05/10/21 05:00 Absolute Nucleated RBC 0.0 /100WBC 05/10/21 05:00 Sodium 145 mmol/L (136-145) 05/10/21 05:00 Corrected Sodium 147 mmol/L (136-145) H 05/10/21 05:00 Potassium 4.9 mmol/L (3.5-5.1) 05/10/21 05:00 Chloride 113 mmol/L (98-107) H 05/10/21 05:00 Carbon Dioxide 23.9 mmol/L (21-32) 05/10/21 05:00 BUN 28 mg/dL (7-18) H 05/10/21 05:00 Creatinine 1.09 mg/dL (0.55-1.02) H 05/10/21 05:00 Est GFR (MDRD) Af Amer > 60 (>60) 05/10/21 05:00 Est GFR (MDRD) Non-Af 54 (>60) L 05/10/21 05:00 Glucose 191 mg/dL (65-99) H 05/10/21 05:00 POC Glucose (mg/dL) 163 mg/dL (65-99) H 05/10/21 19:01 Calcium 7.5 mg/dL (8.5-10.1) L 05/10/21 05:00 Corrected Calcium 8.7 mg/dL (8.5-10.1) 05/10/21 05:00 Total Bilirubin 0.30 mg/dL (0.2-1.0) 05/10/21 05:00 AST 12 Units/L (15-37) L 05/10/21 05:00 ALT 14 Units/L (12-78) 05/10/21 05:00 Alkaline Phosphatase 60 Units/L (46-116) 05/10/21 05:00 Total Protein 5.4 g/dL (6.4-8.2) L 05/10/21 05:00 Albumin 2.5 g/dL (3.4-5.0) L 05/10/21 05:00 Globulin 2.9 g/dL (2.5-4.5) 05/10/21 05:00 Albumin/Globulin Ratio 0.9 Ratio (1.1-2.1) L 05/10/21 05:00 Amylase 36 Units/L (25-115) 05/10/21 05:00 Lipase 255 Units/L (73-393) 05/10/21 05:00 Specimen Type Clean catch urine 05/08/21 23:06 Urine Color Yellow (YELLOW) 05/08/21 23:06 Urine Appearance Clear (CLEAR) 05/08/21 23:06 Urine pH 6.5 (5.0 - 8.0) 05/08/21 23:06 Ur Specific [place] 1.010 (1.000-1.030) 05/08/21 23:06 Urine Protein 1+ (NEGATIVE) 05/08/21 23:06 Urine Glucose (UA) 4+ (NEGATIVE) 05/08/21 23:06 Urine Ketones Negative (NEGATIVE) 05/08/21 23:06 Urine Occult Blood Negative (NEGATIVE) 05/08/21 23:06 Urine Nitrite Negative (NEGATIVE) 05/08/21 23:06 Urine Bilirubin Negative (NEGATIVE) 05/08/21 23:06 Urine Urobilinogen Normal (NORMAL) 05/08/21 23:06 Ur Leukocyte Esterase Negative (NEGATIVE) 05/08/21 23:06 Urine RBC 0-2 /HPF (0-3) 05/08/21 23:06 Urine WBC 0-2 /HPF (0-5) 05/08/21 23:06 Ur Squamous Epith Cells Few /HPF (NEGATIVE) 05/08/21 23:06 Urine Bacteria Trace /HPF (NEGATIVE) 05/08/21 23:06 Ur Culture Indicated? No/not indicated 05/08/21 23:06 - Plan (1) Nausea & vomiting Status: Acute (2) Abdominal pain Status: Acute (3) Acute pancreatitis Status: Acute Plan: Trend labs. Nausea control. IV fluids. NPO. Repeat labs in am
[2021-05-11] MEDS: PROTONIX INJ 40 MG VIAL IVP SCH ×3 (03:13→20:28)
[2021-05-11] MEDS: IPRATROPIUM BROMIDE 42 MCG/SPRAY ENOSTRIL SCH ×3 (05:09→21:01)
[2021-05-11 06:30] LABS: ALANINE AMINOTRANSFERASE 16 Units/L (12-78); ALBUMIN 2.6 g/dL (3.4-5.0); ALKALINE PHOSPHATASE 62 Units/L (46-116); AMYLASE 24 Units/L (25-115); ASPARTATE AMINO TRANSFERASE 13 Units/L (15-37); BLOOD UREA NITROGEN 20 mg/dL (7-18); CALCIUM 7.5 mg/dL (8.5-10.1); CHLORIDE 111 mmol/L (98-107); COR CA(FOR HYPOALB) 8.6 mg/dL (8.5-10.1); COR NA(FOR HYPERGLY) 146 mmol/L (136-145); LIPASE 173 Units/L (73-393); SODIUM 144 mmol/L (136-145); TOTAL PROTEIN 5.5 g/dL (6.4-8.2); eGFR NON BLACK RACES 60 (>60)
[2021-05-11 06:49] LABS: BASOPHILS % (AUTO) 0.2 % (0.2-1.0); EOSINOPHILS # (AUTO) 0.2 x10^3/uL (0.0-0.2); HEMATOCRIT 26.3 % (36.0-47.0); LYMPHOCYTES # (AUTO) 1.6 X10^3/uL (1.3-2.9); LYMPHOCYTES % (AUTO) 19.3 % (21.0-51.0); MEAN CORPUSCULAR HEMOGLOBIN 28.4 pg (27.0-34.0); MEAN CORPUSCULAR HGB CONC 34.1 g/dL (33.0-35.0); MEAN CORPUSCULAR VOLUME 83.3 fL (80.0-100.0); MEAN PLATELET VOLUME 9.5 fL (7.4-11.0); MONOCYTES # (AUTO) 0.8 x10^3/uL (0.3-0.8); MONOCYTES % (AUTO) 10.4 % (0.0-13.0); NEUTROPHILS # (AUTO) 5.5 x10^3/uL (2.2-4.8); NEUTROPHILS % (AUTO) 67.1 % (42.0-75.0); RED BLOOD COUNT 3.16 X10^6/uL (3.5-5.4); RED CELL DISTRIBUTION WIDTH 14.8 % (11.6-16.5); WHITE BLOOD COUNT 8.1 X10^3/uL (3.6-10.0)
[2021-05-11] MEDS: BROVANA IN SCH ×2 (08:33→21:45)
[2021-05-11] MEDS: PULMICORT NEB TX 0.5 MG NEB SCH ×2 (08:33→21:45)
[2021-05-11] MEDS ORDERED: ELIQUIS PO SCH (09:00)
[2021-05-11] MEDS: CYMBALTA PO SCH (09:17)
[2021-05-11] MEDS: FERROUS GLUCONATE PO SCH (09:18)
[2021-05-11] MEDS: ZyrTEC TAB 10 MG PO SCH (09:18)
[2021-05-11] MEDS: ELIQUIS PO SCH ×2 (09:18→20:27)
[2021-05-11] MEDS: LASIX PO SCH (09:18)
[2021-05-11] MEDS: ZESTRIL TAB 10 MG PO SCH (09:19)
[2021-05-11] MEDS: SYNTHROID 112 mcg TAB PO SCH (09:19)
[2021-05-11] MEDS: LUVOX PO SCH ×2 (09:19→20:27)
[2021-05-11] MEDS: SINGULAIR TAB 10 MG PO SCH (09:19)
[2021-05-11] MEDS: TOPROL XL PO SCH (09:19)
[2021-05-11] MEDS: LANTUS SC SCH (09:41)
[2021-05-11] MEDS: MORPHINE SULFATE INJ 4 MG IVP PRN (09:42)
[2021-05-11] MEDS: PHENERGAN TAB 25 MG PO PRN (09:42)
[2021-05-11 16:01] VITALS: BMI 49.6
[2021-05-11] MEDS ORDERED: MORPHINE SULFATE INJ 2 MG INJ IVP PRN (18:48)
[2021-05-11] MEDS: SNACK - Diabetic Appropriate PO SCH (20:27)
[2021-05-12] MEDS: NS 1,000 ML IV 1,000 ML IV SCH ×2 (01:13→09:28)
[2021-05-12] MEDS: IPRATROPIUM BROMIDE 42 MCG/SPRAY ENOSTRIL SCH ×2 (05:10→14:07)
[2021-05-12 07:43] LABS: BASOPHILS # (AUTO) 0.1 X10^3/uL (0.0-0.1); BASOPHILS % (AUTO) 0.7 % (0.2-1.0); EOSINOPHILS # (AUTO) 0.2 x10^3/uL (0.0-0.2); EOSINOPHILS % (AUTO) 3.1 % (0.9-2.9); HEMATOCRIT 27.9 % (36.0-47.0); HEMOGLOBIN 9.4 g/dL (12.0-16.0); LYMPHOCYTES # (AUTO) 1.3 X10^3/uL (1.3-2.9); LYMPHOCYTES % (AUTO) 18.6 % (21.0-51.0); MEAN CORPUSCULAR HEMOGLOBIN 27.9 pg (27.0-34.0); MEAN CORPUSCULAR HGB CONC 33.6 g/dL (33.0-35.0); MEAN CORPUSCULAR VOLUME 83.1 fL (80.0-100.0); MEAN PLATELET VOLUME 8.9 fL (7.4-11.0); MONOCYTES # (AUTO) 0.7 x10^3/uL (0.3-0.8); MONOCYTES % (AUTO) 10.6 % (0.0-13.0); NEUTROPHILS # (AUTO) 4.7 x10^3/uL (2.2-4.8); RED BLOOD COUNT 3.36 X10^6/uL (3.5-5.4)
[2021-05-12 07:57] LABS: ALANINE AMINOTRANSFERASE 13 Units/L (12-78); ALBUMIN 2.5 g/dL (3.4-5.0); ALKALINE PHOSPHATASE 61 Units/L (46-116); AMYLASE 23 Units/L (25-115); ASPARTATE AMINO TRANSFERASE 12 Units/L (15-37); BLOOD UREA NITROGEN 16 mg/dL (7-18); CALCIUM 7.2 mg/dL (8.5-10.1); CARBON DIOXIDE 23.7 mmol/L (21-32); CHLORIDE 112 mmol/L (98-107); COR CA(FOR HYPOALB) 8.4 mg/dL (8.5-10.1); COR NA(FOR HYPERGLY) 143 mmol/L (136-145); CREATININE 1.03 mg/dL (0.55-1.02); LIPASE 154 Units/L (73-393); SODIUM 142 mmol/L (136-145); TOTAL PROTEIN 5.5 g/dL (6.4-8.2); eGFR NON BLACK RACES 58 (>60)
[2021-05-12] MEDS: TOPROL XL PO SCH (08:04)
[2021-05-12] MEDS: FERROUS GLUCONATE PO SCH (09:26)
[2021-05-12] MEDS: ELIQUIS PO SCH (09:26)
[2021-05-12] MEDS: CYMBALTA PO SCH (09:26)
[2021-05-12] MEDS: SINGULAIR TAB 10 MG PO SCH (09:27)
[2021-05-12] MEDS: LANTUS SC SCH (09:27)
[2021-05-12] MEDS: LASIX PO SCH (09:27)
[2021-05-12] MEDS: PROTONIX INJ 40 MG VIAL IVP SCH (09:27)
[2021-05-12] MEDS: LUVOX PO SCH (09:27)
[2021-05-12] MEDS: ZESTRIL TAB 10 MG PO SCH (09:28)
[2021-05-12] MEDS: SYNTHROID 112 mcg TAB PO SCH (09:28)
[2021-05-12] MEDS: BROVANA IN SCH (09:28)
[2021-05-12] MEDS: ZyrTEC TAB 10 MG PO SCH (09:28)
[2021-05-12] MEDS: PULMICORT NEB TX 0.5 MG NEB SCH (09:29)
[2021-05-12 11:47] VITALS: BP 168/74
[2021-05-12] MEDS: PHENERGAN TAB 25 MG PO PRN (12:02)
== END 2021-05-12 16:16 | disposition home or self-care (01) | DRG 440 ==
LOC: ER 19:11 → MED/SURG 19:11
PROVIDERS: ADMIT Internal Medicine; ATTEND Internal Medicine
DX: Z86.711 Personal history of pulmonary embolism; I25.10 Atherosclerotic heart disease of native coronary artery without angina pectoris; I10 Essential (primary) hypertension; Z86.718 Personal history of other venous thrombosis and embolism; R10.84 Generalized abdominal pain; K85.80 Other acute pancreatitis without necrosis or infection; R11.2 Nausea with vomiting, unspecified; Z91.81 History of falling; K21.9 Gastro-esophageal reflux disease without esophagitis; Z86.16 Personal history of COVID-19; E11.65 Type 2 diabetes mellitus with hyperglycemia